=== PATIENT | female | born 1945 | race Caucasian/White ===

== ENCOUNTER 2021-03-26 22:21 | Inpatient (IN) ==
--- NOTE | 2021-03-26 23:30 | Emergency Department Note ---
History of Present Illness General Chief complaint: Back Injury/Pain Stated complaint: BACK PAIN, SORES ON BACK Time Seen by Provider: 03/26/21 22:54 Source: family Mode of arrival: EMS Limitations: altered mental status History of Present Illness Provider complaint: lesions to back/buttock Onset (ago): day(s) 6 Location: back Maximum Pain Intensity: 6 Treatments prior to arrival: other This is a 76-year-old female presents emergency department with daughter at bedside due to concern for worsening lesions to her back and buttocks as well as recent fever and increased confusion. Daughter states she seemed more confused and lethargic on Sunday compared to normal and developed a fever. She states she was started on Bactrim for a UTI by staff at the facility where she lives. She states the following day she was still unwell, with decreased oral intake. Yesterday family went to visit her and noticed lesions to her back. Daughter at bedside called today and went and picked her mother up to take her to [facility] for additional blood work and testing. Daughter states she is still taking Bactrim however they also noticed worsening lesions to her back and buttocks. He states it did not appear consistent with prior pressure ulcers. She states her mother gets dialysis Sunday through Sunday a shortened course each day, and then has Sunday and Sunday off. She states she does still have fevers yesterday evening, none noted today. Mother her mother has still had decreased oral intake. Pt seen during a time of high acuity and national emergency pandemic while wearing PPE. Home Medications Medication Instructions Recorded Confirmed Type acetaminophen 325 mg tablet 650 mg PO DAILY 03/26/21 03/26/21 History (Tylenol) acetaminophen 325 mg tablet 650 mg PO Q6H PRN MDD 3 GRAMS/24 03/26/21 03/26/21 History (Tylenol) HOURS. acetazolamide 250 mg tablet 250 mg PO QID 03/26/21 03/26/21 History albuterol sulfate 90 mcg/actuation 2 puff INHALATION Q4H PRN 03/26/21 03/26/21 History aerosol inhaler (ProAir HFA) amlodipine 5 mg tablet 5 mg PO DAILY 03/26/21 03/26/21 History betamethasone dipropionate 0.05 % 1 applic TOPICAL BID 03/26/21 03/26/21 History topical cream brimonidine 0.2 %-timolol 0.5 % 1 drp OPL TIDM 03/26/21 03/26/21 History eye drops (Combigan) carboxymethylcellulose sodium 0.5 1 drp OPR QID 03/26/21 03/26/21 History % eye drops (Refresh Tears) chlorhexidine gluconate 4 % 1 ea TOPICAL BID 03/26/21 03/26/21 History topical liquid (Hibiclens) cholecalciferol (vitamin D3) 125 125 mcg PO DAILY 03/26/21 03/26/21 History mcg (5,000 unit) tablet (Vitamin D3) diphenhydramine-zinc acetate 2 1 applic TOPICAL BID PRN 03/26/21 03/26/21 History %-0.1 % topical cream (Benadryl Extra Strength) dorzolamide 2 % eye drops 1 drp OPL Q8H 03/26/21 03/26/21 History fluticasone furoate 100 1 inh INHALATION DAILY 03/26/21 03/26/21 History mcg-vilanterol 25 mcg/dose inhalation powder (Breo Ellipta) hydrogen peroxide 3 % solution 1 applic TOPICAL DIRECTED 03/26/21 03/26/21 History insulin glargine 100 unit/mL (3 22 unit SUBCUT DAILY 03/26/21 03/26/21 History mL) subcutaneous pen (Basaglar KwikPen U-100 Insulin) insulin lispro 100 unit/mL 4 unit SUBCUT DAILY 03/26/21 03/26/21 History subcutaneous solution (Humalog U-100 Insulin) ipratropium 0.5 mg-albuterol 3 mg 3 ml INHALATION Q6H PRN 03/26/21 03/26/21 History (2.5 mg base)/3 mL nebulization soln labetalol 100 mg tablet 100 mg PO BID 03/26/21 03/26/21 History levothyroxine 125 mcg tablet 125 mcg PO DAILY 03/26/21 03/26/21 History loratadine 10 mg tablet (Claritin) 10 mg PO DAILY 03/26/21 03/26/21 History midodrine 5 mg tablet 5 mg PO BID 03/26/21 03/26/21 History miscellaneous medical supply 03/26/21 03/26/21 History (Ocusoft Eyelid Cleansing Pads) ondansetron HCl 4 mg tablet 4 mg PO Q8H PRN 03/26/21 03/26/21 History pilocarpine HCl 2 % eye drops 1 drp OPL TID 03/26/21 03/26/21 History sertraline 50 mg tablet (Zoloft) 50 mg PO DAILY 03/26/21 03/26/21 History sevelamer carbonate 800 mg tablet 2,400 mg PO TID 03/26/21 03/26/21 History (Renvela) sodium bicarbonate 650 mg tablet 325 mg PO TID 03/26/21 03/26/21 History sulfamethoxazole 800 1 tab PO BID 03/26/21 03/26/21 History mg-trimethoprim 160 mg tablet (Bactrim DS) sumatriptan succinate 50 mg tablet 50 mg PO Q24H PRN 03/26/21 03/26/21 History (Imitrex) triamcinolone acetonide 55 mcg 2 spray INTRANASAL DAILY 03/26/21 03/26/21 History nasal spray aerosol (Nasacort Allergy) vitamin B complex and vitamin C 1 cap PO DAILY 03/26/21 03/26/21 History no.20-folic acid 1 mg capsule Allergies Allergy/AdvReac Type Severity Reaction Status Date / Time propoxyphene [From Darvon] Allergy Severe RESP Verified 03/26/21 23:15 DISTRESS shellfish derived Allergy Severe PER PT'S Verified 03/26/21 23:15 DAUGHTER "SEVERE REACTION LONG TIME AGO". latex Allergy Intermediate Rash Verified 03/26/21 23:15 Past Med/Surg History Medical History (Updated 03/27/21 @ 23:56 by Emili Myers DO) Allergic rhinitis Anxiety with depression CKD (chronic kidney disease) requiring chronic dialysis COPD (chronic obstructive pulmonary disease) Diabetes mellitus Glaucoma Hypertension Hypothyroidism (acquired) Migraine headache Urinary tract infection Social History Smoking Status: Never smoker Preferred Language: Pashto Feels Safe at Home: Yes Review of Systems A total of 10 systems reviewed and were otherwise negative All systems reviewed & are unremarkable except as noted in HPI & below Physical Exam Vital Signs Vital Signs - 24 hr 03/27/21 00:35 03/27/21 02:00 03/27/21 03:30 Pulse Rate [Left] 76 78 79 Respiratory Rate 18 16 16 Respiratory Effort / Characteristics Non-Labored Spontaneous Non-Labored Spontaneous Non-Labored Spontaneous Respiratory Depth Normal Normal Normal Blood Pressure [Right Arm] 163/66 H 153/63 H 172/78 H Blood Pressure Mean [Right Arm] 98 93 109 Pulse Oximetry 100 100 98 Oxygen Delivery Method Room Air Room Air Room Air 03/27/21 04:00 Pulse Rate [Left] 80 Respiratory Rate 16 Respiratory Effort / Characteristics Non-Labored Spontaneous Respiratory Depth Normal Blood Pressure [Right Arm] 146/62 H Blood Pressure Mean [Right Arm] 90 Pulse Oximetry 95 Oxygen Delivery Method Room Air GENERAL: alert, unwell appearing, well nourished, no distress, non-toxic EYE EXAM: normal conjunctiva, PERRL and EOM's grossly intact OROPHARYNX: no exudate, no erythema, lips, buccal mucosa, and tongue normal and mucous membranes are moist NECK: supple, no nuchal rigidity, no adenopathy, non-tender LUNGS: Clear to auscultation. Normal chest wall mechanics, no w/r/r HEART: no murmurs, S1 normal and S2 normal ABDOMEN: abdomen soft, non-tender, normo-active bowel sounds, no masses, no rebound or guarding. BACK: Back is symmetrical on inspection and there is no deformity, no midline tenderness, no CVA tenderness. SKIN: no bruising or petechiae, multiple lesions noted to the left low back into the left buttock that are erythematous at the base with an excoriated and ulcerative appearing lesion centrally, no vesicles, appearance not consistent with zoster, no drainage, increased erythema and induration left lateral lumbar region which appears to have started around one of the lesions, the appearance of lateralization does not suggest there consistent with a pressure ulcer, there is also some areas of excoriation down onto the left buttock medially UPPER EXTREMITIES: upper extremities are grossly normal. FROM, nml pulses b/l. Dialysis fistula noted in the left upper extremity. LOWER EXTREMITIES: No pitting edema. FROM, nml pulses b/l. NEURO EXAM: Normal sensorium, cranial nerves II-XII grossly intact, normal speech, no gross weakness of arms, no gross weakness of legs. Gross sensation intact. Course Administered Medications Acetaminophen (Acetaminophen 325 Mg Tab) 650 mg PO Q6H PRN PRN Reason: Pain or Fever Stop: 04/26/21 05:24 Last Admin: 03/27/21 22:40 Dose: 650 mg Documented by: [id number] Acetazolamide (Acetazolamide 250 Mg Tab) 250 mg PO QID JORGE A Stop: 04/26/21 08:59 Last Admin: 03/27/21 21:24 Dose: 250 mg Documented by: [id number] Admin: 03/27/21 16:00 Dose: 250 mg Documented by: [id number] Admin: 03/27/21 13:22 Dose: 250 mg Documented by: [id number] Admin: 03/27/21 10:27 Dose: Not Given Documented by: [id number] Amlodipine Besylate (Amlodipine Besylate 5 Mg Tab) 5 mg PO DAILY JORGE A Stop: 04/26/21 08:59 Last Admin: 03/27/21 07:46 Dose: 5 mg Documented by: [id number] Clotrimazole (Clotrimazole 10 Mg Harley) 10 mg BUCCAL [id number] JORGE A Stop: 04/06/21 06:59 Last Admin: 03/27/21 21:30 Dose: 10 mg Documented by: [id number] Admin: 03/27/21 17:40 Dose: 10 mg Documented by: [id number] Admin: 03/27/21 16:00 Dose: 10 mg Documented by: [id number] Admin: 03/27/21 12:23 Dose: 10 mg Documented by: [id number] Admin: 03/27/21 07:48 Dose: 10 mg Documented by: [id number] Dorzolamide HCl (Dorzolamide Hcl 2% Oph Soln 10 Ml Btl) 1 drops OPL Q8H JORGE A Stop: 04/26/21 05:59 Last Admin: 03/27/21 21:25 Dose: 1 drops Documented by: [id number] Admin: 03/27/21 13:22 Dose: 1 drops Documented by: [id number] Admin: 03/27/21 07:45 Dose: 1 drops Documented by: [id number] Fluticasone/Vilanterol (Fluticasone/Vilanterol 100/25mcg 14 Puffs/Inhaler) 1 p uffs INH DAILY JORGE A Stop: 04/26/21 08:59 Last Admin: 03/27/21 07:50 Dose: 1 puffs Documented by: [id number] Heparin Sodium (Porcine) (Heparin Sod 5,000 Unit/0.5 Ml Vial) 5,000 units SQ Q12 JORGE A Stop: 04/26/21 08:59 Last Admin: 03/27/21 21:26 Dose: 5,000 units Documented by: [id number] Admin: 03/27/21 07:49 Dose: 5,000 units Documented by: [id number] Acyclovir Sodium 250 mg/ (Dextrose) 105 mls @ 100 mls/hr IV Q24H JORGE A; Protocol Stop: 04/03/21 05:59 Last Infusion: 03/27/21 21:54 Dose: 0 mls/hr Documented by: [id number] Admin: 03/27/21 21:28 Dose: 250 mls/hr Documented by: [id number] Infusion: 03/27/21 08:02 Dose: 0 mls/hr Documented by: [id number] Admin: 03/27/21 06:22 Dose: 100 mls/hr Documented by: [id number] Cefazolin Sodium (Ancef 1000mg) 1,000 mg in 7.5 mls @ 2.5 mls/min IV Q24H JORGE A; Protocol Stop: 04/03/21 16:59 Last Admin: 03/27/21 16:06 Dose: 2.5 mls/min Documented by: [id number] Insulin Aspart (Insulin Aspart Per Unit) 0 units SC ACHS JORGE A Stop: 04/26/21 07:29 Last Admin: 03/27/21 22:07 Dose: Not Given Documented by: [id number] Cosigned by: [id number] Admin: 03/27/21 17:29 Dose: Not Given Documented by: [id number] Admin: 03/27/21 13:33 Dose: 5 units Documented by: [id number] Cosigned by: [id number] Admin: 03/27/21 09:09 Dose: 8 units Documented by: [id number] Cosigned by: [id number] Insulin Glargine (Insulin Glargine Solostar 100 Units/Ml 3 Ml Pen) 22 units SQ DAILY JORGE A Stop: 04/26/21 08:59 Last Admin: 03/27/21 09:10 Dose: 22 units Documented by: [id number] Cosigned by: [id number] Labetalol HCl (Labetalol Hcl 100 Mg Tab) 100 mg PO BID JORGE A Stop: 04/26/21 08:59 Last Admin: 03/27/21 21:26 Dose: 100 mg Documented by: [id number] Admin: 03/27/21 07:46 Dose: 100 mg Documented by: [id number] Levothyroxine Sodium (Levothyroxine Sodium 125 Mcg Tablet) 125 mcg PO DAILYBB JORGE A Stop: 04/26/21 06:29 Last Admin: 03/27/21 07:46 Dose: 125 mcg Documented by: [id number] Loratadine (Loratadine 10 Mg Tab) 10 mg PO DAILY [facility] Stop: 04/26/21 08:59 Last Admin: 03/27/21 07:47 Dose: 10 mg Documented by: [id number] Midodrine (Midodrine Hcl 2.5 Mg Tab) 5 mg PO BID@0800,1200 JORGE A Stop: 04/26/21 07:59 Last Admin: 03/27/21 12:24 Dose: 5 mg Documented by: [id number] Admin: 03/27/21 07:46 Dose: 5 mg Documented by: [id number] Miscellaneous (Brimonidine-Timolol [Combigan]: Order Awaiting Action) 1 ea N/A QS [facility] Stop: 04/26/21 07:59 Last Admin: 03/27/21 14:09 Dose: Not Given Documented by: [id number] Admin: 03/27/21 07:54 Dose: Not Given Documented by: [id number] Miscellaneous (Carbohydrates For Hypoglycemia ) 15 - 30 gm PO UD PRN PRN Reason: Hypoglycemia Protocol Stop: 04/26/21 05:24 Last Admin: 03/27/21 21:11 Dose: 30 gm Documented by: [id number] Pilocarpine HCl (Pilocarpine Hcl 2% Op Soln 15 Ml Btl) 1 drops OPL Q8H JORGE A Stop: 04/26/21 05:59 Last Admin: 03/27/21 21:25 Dose: 1 drops Documented by: [id number] Admin: 03/27/21 13:22 Dose: 1 drops Documented by: [id number] Admin: 03/27/21 07:45 Dose: 1 drops Documented by: [id number] Sertraline HCl (Sertraline Hcl 50 Mg Tablet) 50 mg PO DAILY JORGE A Stop: 04/26/21 08:59 Last Admin: 03/27/21 07:48 Dose: 50 mg Documented by: [id number] Sevelamer HCl (Sevelamer Hcl 800 Mg Tablet) 2,400 mg PO TIDM JORGE A Stop: 04/26/21 07:59 Last Admin: 03/27/21 16:01 Dose: 2,400 mg Documented by: [id number] Admin: 03/27/21 12:23 Dose: 2,400 mg Documented by: [id number] Admin: 03/27/21 07:48 Dose: 2,400 mg Documented by: [id number] Sodium Bicarbonate (Sodium Bicarbonate 650 Mg Tab) 325 mg PO TID JORGE A Stop: 04/26/21 08:59 Last Admin: 03/27/21 21:24 Dose: 325 mg Documented by: [id number] Admin: 03/27/21 13:23 Dose: 325 mg Documented by: [id number] Admin: 03/27/21 07:47 Dose: 325 mg Documented by: [id number] Vitamin B Complex/Folic Acid (Nephrocaps) 1 cap PO DAILY JORGE A Stop: 04/26/21 08:59 Last Admin: 03/27/21 07:46 Dose: 1 cap Documented by: [id number] Vitamin D (Cholecalciferol 5,000 Units 125 Mcg Tab) 5,000 units PO DAILY JORGE A Stop: 04/26/21 08:59 Last Admin: 03/27/21 07:48 Dose: 5,000 units Documented by: [id number] Discontinued Medications Sodium Chloride (Nss) 250 mls @ 999 mls/hr IV .Q16M ONE Stop: 03/27/21 00:55 Last Infusion: 03/27/21 01:02 Dose: 0 mls/hr Documented by: [id number] Admin: 03/27/21 00:45 Dose: 999 mls/hr Documented by: [id number] Cefepime HCl (Maxipime) 2,000 mg in 20 mls @ 5 mls/min IV NOW STA; Protocol Stop: 03/27/21 01:16 Last Admin: 03/27/21 01:46 Dose: 5 mls/min Documented by: [id number] Vancomycin HCl 1,250 mg/ (Sodium Chloride) 525 mls @ 200 mls/hr IV NOW ONE Stop: 03/27/21 05:28 Last Infusion: 03/27/21 03:35 Dose: 0 mls/hr Documented by: [id number] Admin: 03/27/21 03:20 Dose: 200 mls/hr Documented by: [id number] Daptomycin 200 mg/ Syringe 4 mls @ 2 mls/min IV NOW ONE; Protocol Stop: 03/27/21 03:35 Last Admin: 03/27/21 04:08 Dose: 2 mls/min Documented by: [id number] Medical Decision Making Differential Diagnosis Differential Diagnosis includes but is not limited to dehydration, stroke, anemia, hypoglycemia, hyponatremia, hypernatremia, urinary tract infection, pneumonia, bronchitis, sepsis, gastroenteritis, additional abdominal pathology, metabolic abnormalities and infections. Medical Records Attestation: I reviewed the patient's medical records. Home Medications Current Medication List: was personally reviewed by me Laboratory Data Attestation: I reviewed the patient's lab results. Result diagrams: 03/26/21 23:45 03/26/21 23:45 Lab Results 03/26/21 03/26/21 03/26/21 Range/Units 23:45 23:45 23:45 WBC 13.60 H (4.8-10.8) K/uL RBC 2.66 L (4.2-5.4) M/uL Hgb 9.0 L (12.0-16.0) g/dL Hct 28.7 L (37-47) % MCV 107.9 H (80-100) fL MCH 33.8 (25-34) pg MCHC 31.4 L (32-36) g/dL RDW Std Deviation 60.5 H (36.4-46.3) fL RDW Coeff of Maggie 15.4 H (11.5-14.5) % Plt Count 237 (130-400) K/uL MPV 10.2 (7.4-10.4) fL Immature Gran % (Auto) 0.7 % Neut % (Auto) 85.5 % Lymph % (Auto) 10.9 % [place] % (Auto) 1.9 % Eos % (Auto) 0.9 % Baso % (Auto) 0.1 % Neut # (Auto) 11.63 H (1.4-6.5) K/uL Lymph # (Auto) 1.48 (1.2-3.4) K/uL [place] # (Auto) 0.26 (0.11-0.59) K/uL Eos # (Auto) 0.12 (0-0.5) K/uL Baso # (Auto) 0.01 (0-0.2) K/uL Immature Gran # (Auto) 0.10 H (0.00-0.02) K/uL Sodium 134 L (136-145) mmol/L Potassium 3.7 (3.5-5.1) mmol/L Chloride 91 L (98-107) mmol/L Carbon Dioxide 31 (21-32) mmol/L Anion Gap 12 H (3-11) BUN 46 H (6-23) mg/dl Creatinine 3.65 H (0.6-1.2) mg/dl Est Cr Clr Drug Dosing Not Reportable Est GFR ( Amer) 13.2 ml/min Est GFR (Non-Af Amer) 11.4 ml/min BUN/Creatinine Ratio 12.6 (10-20) Glucose 294 H (70-99(Fasting)) mg/dl Calcium 8.3 L (8.5-10.1) mg/dl Phosphorus 2.1 L (2.5-4.9) mg/dl Magnesium 2.5 H (1.7-2.4) mg/dl Total Bilirubin 0.4 (0.2-1.0) mg/dl AST 7 L (13-39) U/L ALT < 3 L (7-52) U/L Alkaline Phosphatase 134 H (34-104) U/L Total Protein 6.4 (6.0-8.3) gm/dl Albumin 3.6 (3.4-5.0) gm/dl Globulin 2.8 (2.5-4.0) gm/dl Albumin/Globulin Ratio 1.3 (0.9-2) Procalcitonin 4.42 H (0-0.5) ng/ml Nasal Screen MRSA (PCR) (Negative) SARS-CoV-2, RNA, NAAT (NEGATIVE) 03/27/21 03/27/21 Range/Units 01:00 01:00 WBC (4.8-10.8) K/uL RBC (4.2-5.4) M/uL Hgb (12.0-16.0) g/dL Hct (37-47) % MCV (80-100) fL MCH (25-34) pg MCHC (32-36) g/dL RDW Std Deviation (36.4-46.3) fL RDW Coeff of Maggie (11.5-14.5) % Plt Count (130-400) K/uL MPV (7.4-10.4) fL Immature Gran % (Auto) % Neut % (Auto) % Lymph % (Auto) % [place] % (Auto) % Eos % (Auto) % Baso % (Auto) % Neut # (Auto) (1.4-6.5) K/uL Lymph # (Auto) (1.2-3.4) K/uL [place] # (Auto) (0.11-0.59) K/uL Eos # (Auto) (0-0.5) K/uL Baso # (Auto) (0-0.2) K/uL Immature Gran # (Auto) (0.00-0.02) K/uL Sodium (136-145) mmol/L Potassium (3.5-5.1) mmol/L Chloride (98-107) mmol/L Carbon Dioxide (21-32) mmol/L Anion Gap (3-11) BUN (6-23) mg/dl Creatinine (0.6-1.2) mg/dl Est Cr Clr Drug Dosing Est GFR ( Amer) ml/min Est GFR (Non-Af Amer) ml/min BUN/Creatinine Ratio (10-20) Glucose (70-99(Fasting)) mg/dl Calcium (8.5-10.1) mg/dl Phosphorus (2.5-4.9) mg/dl Magnesium (1.7-2.4) mg/dl Total Bilirubin (0.2-1.0) mg/dl AST (13-39) U/L ALT (7-52) U/L Alkaline Phosphatase (34-104) U/L Total Protein (6.0-8.3) gm/dl Albumin (3.4-5.0) gm/dl Globulin (2.5-4.0) gm/dl Albumin/Globulin Ratio (0.9-2) Procalcitonin (0-0.5) ng/ml Nasal Screen MRSA (PCR) Positive A (Negative) SARS-CoV-2, RNA, NAAT NEGATIVE (NEGATIVE) Imaging Data Radiologist's Impression: CT head: Motion artifact limits evaluation. High attenuation material within the left basal ganglia which is favored to represent calcification as there is an adjacent chronic infarct and there is a lack of surrounding edema. Blood products difficult to exclude especially given the motion artifact. Recommend correlation with any comparisons available. Alternatively consider follow-up CT in a few hours or MRI for definitive characterization. Additional calcifications within the cerebellum. CT abdomen and pelvis without contrast: Mild mucosal thickening in the bladder. Correlate with UA for cystitis. Moderate stool within the rectum. Correlate for constipation. No obstruction or abscess. Atrophic kidneys. Cholelithiasis. Gallbladder is distended. Radiologist: Leonardo Santiago MD CT head: Unchanged appearance of the high attenuation focus in the left basal ganglia. Again favored to be calcium. Blood products considered less likely but not excluded. No surrounding edema. If there are focal lateralizing symptoms and clinical exam consistent with this distribution consider MRI for further characterization. Radiologist: Leonardo Santiago MD MDM Narrative This is a 76-year-old female presents emergency department with daughter due to concern for evolving back pain with accompanying rash and recent diagnosis of UTI. Patient with a complicated past medical history including chronic kidney disease on dialysis, patient does currently reside at an assisted living facility. Patient was diagnosed with a UTI earlier this week and started on Bactrim twice daily. Family noticed an evolving rash to her left low back and buttock area that seemed dissimilar in appearance with prior pressure sores. Patient was noticed to have decreased oral intake, increased fatigue and lethargy, and intermittent fevers. Patient with atypical appearing rash on exam. Not consistent with pressure ulcers or zoster although involved areas are unilateral. There does appear to be evolving cellulitis around one of the lesions in addition. MRSA swab added given patient's diabetic status although daughter denies history of MRSA. This was positive, and after discussion with the hospitalist vancomycin was changed to daptomycin. We were eventually able to obtain a copy of the UA from the facility, no culture was available. Outpatient labs ordered through [facility] were also obtained through medical records from [facility]. In comparison of labs from [facility] which were just taken earlier prior to arrival and the labs obtained upon arrival here, patient's white blood cell count was already more elevated. Patient also found to have an elevated procalcitonin. Due to comorbidities and evolving labs, I am concerned for possible evolving sepsis. Patient started on IV antibiotics in addition. Patient was hemodynamically stable throughout. Patient and daughter kept up-to-date on results and plan, verbalized understanding and were in agreement. An order was placed for continuous cardiac monitoring. The monitor shows a rate of _88__ with _normal sinus_ rhythm. Impression & Plan Back pain, CKD (chronic kidney disease) requiring chronic dialysis, Urinary tract infection, Elevated procalcitonin, Rash Discharge Plan Visit Data Chief Complaint: Back Injury/Pain Stated Complaint: BACK PAIN, SORES ON BACK ED Provider: Emili Myers Discharge Problem: Back pain, CKD (chronic kidney disease) requiring chronic dialysis, Urinary tract infection, Elevated procalcitonin, Rash Patient Disposition: Admitted As Inpatient Discharge Instructions Interventions: ED Discharge Assessment Last Done: 03/27/21 05:15 Discharge Problem: Back pain Qualifiers: Back pain location: low back pain Chronicity: acute Back pain laterality: left Sciatica presence: without sciatica Qualified Code(s): M54.50 - Low back pain, unspecified Urinary tract infection Qualifiers: Urinary tract infection type: acute cystitis Hematuria presence: without hematuria Qualified Code(s): N30.00 - Acute cystitis without hematuria
[2021-03-26 23:59] LABS: Basophils # (auto) 0.01 K/uL (0-0.2); Basophils % (auto) 0.1 %; Eosinophils # (auto) 0.12 K/uL (0-0.5); Eosinophils % (auto) 0.9 %; Hematocrit (blood only) 28.7 % (37-47); Immature Granulocytes % (auto) 0.7 %; Lymphocytes # (auto) 1.48 K/uL (1.2-3.4); Lymphocytes % (auto) 10.9 %; Mean Corpuscular Hemoglobin 33.8 pg (25-34); Mean Corpuscular Hgb Conc 31.4 g/dL (32-36); Mean Corpuscular Volume 107.9 fL (80-100); Mean Platelet Volume 10.2 fL (7.4-10.4); Monocytes # (auto) 0.26 K/uL (0.11-0.59); Monocytes % (auto) 1.9 %; Neutrophils # (auto) 11.63 K/uL (1.4-6.5); Neutrophils % (auto) 85.5 %; Platelet Count 237 K/uL (130-400); RDW Coefficient of Variation 15.4 % (11.5-14.5); RDW Standard Deviation 60.5 fL (36.4-46.3); Red Blood Count 2.66 M/uL (4.2-5.4)
[2021-03-27 00:19] LABS: Anion Gap 12 (3-11); BUN Creatinine Ratio 12.6 (10-20); Blood Urea Nitrogen 46 mg/dl (6-23); Calcium 8.3 mg/dl (8.5-10.1); Carbon Dioxide 31 mmol/L (21-32); Chloride 91 mmol/L (98-107); Est GFR (African American) 13.2 ml/min; Est GFR (Non-African American) 11.4 ml/min; Glucose 294 mg/dl (70-99(Fasting)); Potassium 3.7 mmol/L (3.5-5.1); Sodium 134 mmol/L (136-145)
[2021-03-27 00:20] LABS: Alanine Aminotransferase < 3 U/L (7-52); Albumin Globulin Ratio 1.3 (0.9-2); Albumin Level 3.6 gm/dl (3.4-5.0); Alkaline Phosphatase 134 U/L (34-104); Aspartate Aminotransferase 7 U/L (13-39); Bilirubin,Total 0.4 mg/dl (0.2-1.0); Globulin 2.8 gm/dl (2.5-4.0); Magnesium 2.5 mg/dl (1.7-2.4); Phosphorus 2.1 mg/dl (2.5-4.9); Total Protein 6.4 gm/dl (6.0-8.3)
[2021-03-27] MEDS ORDERED: SODIUM CHLORIDE 0.9% 250 ML IV ONE (00:40)
[2021-03-27] MEDS ORDERED: CEFEPIME 2,000 MG/20 ML VIAL IV STA (01:13)
[2021-03-27] MEDS ORDERED: VANCOMYCIN CONSULT ACTIVE PRN (02:51)
[2021-03-27] MEDS ORDERED: VANCOMYCIN HCL 1,250 MG in SODIUM CHLORIDE 0.9% 500 ML IV ONE (02:51)
[2021-03-27] MEDS ORDERED: DAPTOmycin 200 MG in SYRINGE 0 ML IV ONE (03:34)
--- NOTE | 2021-03-27 04:17 | History & Physical Report ---
Date of Service March 27, 2021 Assessment & Plan (1) Shingles: Plan: Shingles, indermatomal rash form, with no vesicles yet Start acyclovir 500 mg IV every 8 hours (2) Abscess or cellulitis of back: Plan: Secondary infection on top of baseline shingles, and in intergluteal area with decubitus Placed on daptomycin IV and cefepime IV (3) CKD (chronic kidney disease) requiring chronic dialysis: Plan: CKD requiring chronic dialysis/hypertension-continue Acetazolamide, amlodipine, labetalol, midodrine, sevelamer carbonate, sodium bicarbonate Creatinine 3.65 upon admission, a BUN 46. Patient reportedly receives small treatments of dialysis Sunday through Sunday, and then is given off Sunday and Sunday. Does not need urgent dialysis, appears to be able to be on her usual schedule starting Sunday Consult nephrology (4) Hypertension: Plan: See above (5) Thrush, oral: Plan: Place on Mycelex troches, dissolve in mouth 5 times per day x5 days (6) Urinary tract infection: Plan: To be covered with antibiotics included for skin infection: Daptomycin and cefepime Follow urine culture sensitivity drawn here, as only urinalysis was drawn at the referring institution (7) Diabetes mellitus: Plan: Glucose 294 upon admission Check hemoglobin A1c Continue insulin glargine 22 units subcu daily Hold standing order for Humalog Place on Accu-Cheks before meals and at bedtime with NovoLog coverage per scale (8) COPD (chronic obstructive pulmonary disease): Plan: Continue usual inhalers (9) Migraine headache: Plan: Continue sumatriptan (10) Hypothyroidism (acquired): Plan: Continue levothyroxine 125 mcg daily (11) Anxiety with depression: Plan: Continue sertraline (12) Allergic rhinitis: Plan: Continue loratadine (13) Glaucoma: Plan: Continue outpatient regimen: Acetazolamide, Combigan, dorzolamide, and pilocarpine History of Present Illness Chief Complaint: The patient presents to the emergency department with her daughter, due to worsening skin lesions on her back and buttocks and intergluteal areas, along with fever and worsening confusion. Primary Care Provider: Gilbert Madrid DO The patient is a 76-year-old female with a past medical history including ESRD on HD, hypertension, glaucoma, vitamin D deficiency, glaucoma, migraine headache, orthostatic hypotension, allergic rhinitis, hypothyroidism, and diabetes mellitus who presents to the emergency department as noted above. She has had decreased oral intake over the past several days. She was started on Bactrim for urinary tract infection at [facility] in [place] where she lives. Yesterday, the family noted skin lesions on her back, that the daughter reports are worsening today. She initially picked up her mother and took her to [facility] for additional blood work and testing, and now presents to [facility] for further evaluation and treatment Allergies Allergy/AdvReac Type Severity Reaction Status Date / Time propoxyphene [From Darvon] Allergy Severe RESP Verified 03/26/21 23:15 DISTRESS shellfish derived Allergy Severe PER PT'S Verified 03/26/21 23:15 DAUGHTER "SEVERE REACTION LONG TIME AGO". latex Allergy Intermediate Rash Verified 03/26/21 23:15 Home Medications Medication Instructions Recorded Confirmed Type acetaminophen 325 mg tablet 650 mg PO DAILY 03/26/21 03/26/21 History (Tylenol) acetaminophen 325 mg tablet 650 mg PO Q6H PRN MDD 3 /03/26/21 03/26/21 History (Tylenol) HOURS. acetazolamide 250 mg tablet 250 mg PO QID 03/26/21 03/26/21 History albuterol sulfate 90 mcg/actuation 2 puff INHALATION Q4H PRN 03/26/21 03/26/21 History aerosol inhaler (ProAir HFA) amlodipine 5 mg tablet 5 mg PO DAILY 03/26/21 03/26/21 History betamethasone dipropionate 0.05 % 1 applic TOPICAL BID 03/26/21 03/26/21 History topical cream brimonidine 0.2 %-timolol 0.5 % 1 drp OPL TIDM 03/26/21 03/26/21 History eye drops (Combigan) carboxymethylcellulose sodium 0.5 1 drp OPR QID 03/26/21 03/26/21 History % eye drops (Refresh Tears) chlorhexidine gluconate 4 % 1 ea TOPICAL BID 03/26/21 03/26/21 History topical liquid (Hibiclens) cholecalciferol (vitamin D3) 125 125 mcg PO DAILY 03/26/21 03/26/21 History mcg (5,000 unit) tablet (Vitamin D3) diphenhydramine-zinc acetate 2 1 applic TOPICAL BID PRN 03/26/21 03/26/21 History %-0.1 % topical cream (Benadryl Extra Strength) dorzolamide 2 % eye drops 1 drp OPL Q8H 03/26/21 03/26/21 History fluticasone furoate 100 1 inh INHALATION DAILY 03/26/21 03/26/21 History mcg-vilanterol 25 mcg/dose inhalation powder (Breo Ellipta) hydrogen peroxide 3 % solution 1 applic TOPICAL DIRECTED 03/26/21 03/26/21 History insulin glargine 100 unit/mL (3 22 unit SUBCUT DAILY 03/26/21 03/26/21 History mL) subcutaneous pen (Basaglar KwikPen U-100 Insulin) insulin lispro 100 unit/mL 4 unit SUBCUT DAILY 03/26/21 03/26/21 History subcutaneous solution (Humalog U-100 Insulin) ipratropium 0.5 mg-albuterol 3 mg 3 ml INHALATION Q6H PRN 03/26/21 03/26/21 History (2.5 mg base)/3 mL nebulization soln labetalol 100 mg tablet 100 mg PO BID 03/26/21 03/26/21 History levothyroxine 125 mcg tablet 125 mcg PO DAILY 03/26/21 03/26/21 History loratadine 10 mg tablet (Claritin) 10 mg PO DAILY 03/26/21 03/26/21 History midodrine 5 mg tablet 5 mg PO BID 03/26/21 03/26/21 History miscellaneous medical supply 03/26/21 03/26/21 History (Ocusoft Eyelid Cleansing Pads) ondansetron HCl 4 mg tablet 4 mg PO Q8H PRN 03/26/21 03/26/21 History pilocarpine HCl 2 % eye drops 1 drp OPL TID 03/26/21 03/26/21 History sertraline 50 mg tablet (Zoloft) 50 mg PO DAILY 03/26/21 03/26/21 History sevelamer carbonate 800 mg tablet 2,400 mg PO TID 03/26/21 03/26/21 History (Renvela) sodium bicarbonate 650 mg tablet 325 mg PO TID 03/26/21 03/26/21 History sulfamethoxazole 800 1 tab PO BID 03/26/21 03/26/21 History mg-trimethoprim 160 mg tablet (Bactrim DS) sumatriptan succinate 50 mg tablet 50 mg PO Q24H PRN 03/26/21 03/26/21 History (Imitrex) triamcinolone acetonide 55 mcg 2 spray INTRANASAL DAILY 03/26/21 03/26/21 History nasal spray aerosol (Nasacort Allergy) vitamin B complex and vitamin C 1 cap PO DAILY 03/26/21 03/26/21 History no.20-folic acid 1 mg capsule Past Med/Surg History Medical History (Updated 03/27/21 @ 05:02 by Patricio Guo MD) Allergic rhinitis Anxiety with depression CKD (chronic kidney disease) requiring chronic dialysis COPD (chronic obstructive pulmonary disease) Diabetes mellitus Glaucoma Hypertension Hypothyroidism (acquired) Migraine headache Urinary tract infection Social History Smoking Status: Never smoker Preferred Language: Barbadian Feels Safe at Home: Yes Review of Systems Review of Systems: Patient is not able to contribute to her HPI or review of systems, and her daughter who is with her, provides the information. Physical Exam Physical Exam: The patient is awake, well developed and well nourished, normocephalic and atraumatic, lying in bed and in no acute distress. HEENT--PERRL, EOMI, mucous membranes and oropharynx with thrush on tongue and buccal mucosa Neck--supple. No JVD. No bruits. Thyroid normal, trachea midline, no adenopathy. Heart--normal S1 and S2. No murmurs, rubs or gallops. Lungs--clear bilaterally, no respiratory distress, no accessory muscle use. Abdomen--normal bowel sounds and soft. Nontender. Nondistended, no hernias or masses, no organomegaly. Extremities--no cyanosis or clubbing. No edema. Dermatologic--right flank/upper buttock dermatomal rash, painful to touch, with overlying circular cellulitic areas with central granulation. Decubitus ulcer intergluteal stage II-III. Neurologic--cranial nerves II through XII grossly intact. Rheumatologic--limited exam Psychiatric--flat affect. Results & Data Results & Data ([facility]) Vital Signs (Past 12 Hours) Vital Signs Temp Pulse Pulse Resp BP BP Pulse Ox 03/27/21 04:00 80 16 146/62 H 95 03/27/21 03:30 79 16 172/78 H 98 03/27/21 02:00 78 16 153/63 H 100 03/27/21 00:35 76 18 163/66 H 100 03/26/21 22:42 76 18 137/68 100 03/26/21 22:31 36.9 C 82 16 128/66 100 Laboratory Results Laboratory Results WBC 13.60 K/uL (4.8-10.8) H 03/26/21 23:45 RBC 2.66 M/uL (4.2-5.4) L 03/26/21 23:45 Hgb 9.0 g/dL (12.0-16.0) L 03/26/21 23:45 Hct 28.7 % (37-47) L 03/26/21 23:45 MCV 107.9 fL (80-100) H 03/26/21 23:45 MCH 33.8 pg (25-34) 03/26/21 23:45 MCHC 31.4 g/dL (32-36) L 03/26/21 23:45 RDW Std Deviation 60.5 fL (36.4-46.3) H 03/26/21 23:45 RDW Coeff of Maggie 15.4 % (11.5-14.5) H 03/26/21 23:45 Plt Count 237 K/uL (130-400) 03/26/21 23:45 MPV 10.2 fL (7.4-10.4) 03/26/21 23:45 Immature Gran % (Auto) 0.7 % 03/26/21 23:45 Neut % (Auto) 85.5 % 03/26/21 23:45 Lymph % (Auto) 10.9 % 03/26/21 23:45 Emmons % (Auto) 1.9 % 03/26/21 23:45 Eos % (Auto) 0.9 % 03/26/21 23:45 Baso % (Auto) 0.1 % 03/26/21 23:45 Neut # (Auto) 11.63 K/uL (1.4-6.5) H 03/26/21 23:45 Lymph # (Auto) 1.48 K/uL (1.2-3.4) 03/26/21 23:45 Emmons # (Auto) 0.26 K/uL (0.11-0.59) 03/26/21 23:45 Eos # (Auto) 0.12 K/uL (0-0.5) 03/26/21 23:45 Baso # (Auto) 0.01 K/uL (0-0.2) 03/26/21 23:45 Immature Gran # (Auto) 0.10 K/uL (0.00-0.02) H 03/26/21 23:45 Sodium 134 mmol/L (136-145) L 03/26/21 23:45 Potassium 3.7 mmol/L (3.5-5.1) 03/26/21 23:45 Chloride 91 mmol/L (98-107) L 03/26/21 23:45 Carbon Dioxide 31 mmol/L (21-32) 03/26/21 23:45 Anion Gap 12 (3-11) H 03/26/21 23:45 BUN 46 mg/dl (6-23) H 03/26/21 23:45 Creatinine 3.65 mg/dl (0.6-1.2) H 03/26/21 23:45 Est Cr Clr Drug Dosing Not Reportable 03/26/21 23:45 Est GFR ( Amer) 13.2 ml/min 03/26/21 23:45 Est GFR (Non-Af Amer) 11.4 ml/min 03/26/21 23:45 BUN/Creatinine Ratio 12.6 (10-20) 03/26/21 23:45 Glucose 294 mg/dl (70-99(Fasting)) H 03/26/21 23:45 Calcium 8.3 mg/dl (8.5-10.1) L 03/26/21 23:45 Phosphorus 2.1 mg/dl (2.5-4.9) L 03/26/21 23:45 Magnesium 2.5 mg/dl (1.7-2.4) H 03/26/21 23:45 Total Bilirubin 0.4 mg/dl (0.2-1.0) 03/26/21 23:45 AST 7 U/L (13-39) L 03/26/21 23:45 ALT < 3 U/L (7-52) L 03/26/21 23:45 Alkaline Phosphatase 134 U/L (34-104) H 03/26/21 23:45 Total Protein 6.4 gm/dl (6.0-8.3) 03/26/21 23:45 Albumin 3.6 gm/dl (3.4-5.0) 03/26/21 23:45 Globulin 2.8 gm/dl (2.5-4.0) 03/26/21 23:45 Albumin/Globulin Ratio 1.3 (0.9-2) 03/26/21 23:45 Procalcitonin 4.42 ng/ml (0-0.5) H 03/26/21 23:45 Nasal Screen MRSA (PCR) Positive (Negative) A 03/27/21 01:00 SARS-CoV-2, RNA, NAAT NEGATIVE (NEGATIVE) 03/27/21 01:00 Code Status & VTE Plan Code Status DNR/DNI. Daughter reports that she does want IV antibiotics, IV fluids and pain medications as needed VTE Prophylaxis Plan VTE Prophylaxis will be ordered: Yes PG Care Time/CCT Total # of Minutes Spent Total Time Spent with Patient: Total time spent is greater than 50% in coordination of care (as documented) at patient's floor/unit and/or counseling patient: Coding Level of Care Code 86931 Initial Inpt Care Lvl 3 Diagnoses Glaucoma H40.9 Diabetes mellitus E11.9 Hypertension I10 Hypothyroidism (acquired) E03.9 COPD (chronic obstructive pulmonary disease) J44.9 Allergic rhinitis J30.9 Anxiety with depression F41.8 Urinary tract infection N39.0 Migraine headache G43.909 Shingles B02.9 Abscess or cellulitis of back Thrush, oral B37.0 CKD (chronic kidney disease) requiring chronic dialysis N18.6; Z99.2
[2021-03-27] MEDS ORDERED: ONDANSETRON INJ 2 MG/ML 2 ML VIAL IV PRN (05:25)
[2021-03-27] MEDS ORDERED: GLUCOSE 40% GEL 15 GM TUBE PO PRN (05:25)
[2021-03-27] MEDS ORDERED: GLUCOSE 10 TABS/TUBE PO PRN (05:25)
[2021-03-27] MEDS ORDERED: CARBOHYDRATES FOR HYPOGLYCEMIA PO PRN (05:25)
[2021-03-27] MEDS ORDERED: SUMAtriptan succinate 50 MG TAB PO PRN (05:25)
[2021-03-27] MEDS ORDERED: ACETAMINOPHEN 325 MG TAB PO PRN (05:25)
[2021-03-27] MEDS ORDERED: GLUCAGON FOR INJ 1 MG VIAL SQ PRN (05:25)
[2021-03-27] MEDS ORDERED: ONDANSETRON 4 MG OD TAB PO PRN (05:39)
[2021-03-27] MEDS ORDERED: ALBUTEROL HFA 8 GM INHALER INH PRN (05:41)
[2021-03-27] MEDS: DEXTROSE 5% IV SCH ×2 (06:22→21:28)
[2021-03-27] MEDS: ACYCLOVIR SOD IV SCH ×2 (06:22→21:28)
--- NOTE | 2021-03-27 07:00 | CT Scan Report ---
CT head/brain wo con CLINICAL HISTORY: 76 years-old Female with rad request. Follow-up study in a patient with acutely al tered mental status TECHNIQUE: Multiple axial CT images of the head were obtained without contrast. A dose lowering tech nique was utilized adhering to the principles of ALARA. CT DOSE: 614.27 mGy.cm COMPARISON: Head CT of same day at 1:31 AM FINDINGS: Age-related involutional changes. White matter hypodensities suggest chronic microvascular ischemic d isease. Parenchymal calcifications are noted within the cerebellum and medial periventricular tempora l lobes. 2.1 x 1.5 cm left periventricular cluster of calcifications redemonstrated on image 17 serie s 2. No definite intracranial hemorrhage. No midline shift, intracranial mass, hydrocephalus, territo rial ischemia or abnormal extra-axial collection. The calvarium is intact. Rightward bowing and spurring of the nasal septum. The paranasal sinuses, ma stoid air cells, and middle ear cavities are clear. IMPRESSION: 1. No definite intracranial hemorrhage or midline shift. 2. 2.1 x 1.5 cm left periventricular cluster of calcifications redemonstrated. Additional calcificati ons are noted within the cerebellum and temporal lobes. 3. Age-related involutional changes with chronic microvascular ischemic disease. ACT 112: Negative or not required by law. The above report was generated using voice recognition software. It may contain grammatical, syntax o r spelling errors. Electronically signed by: Heri Sullivan M.D. 03/27/2021 6:59 AM
--- NOTE | 2021-03-27 07:22 | CT Scan Report ---
CT head/brain wo con CLINICAL HISTORY: 76 years-old Female with ams. Acutely altered mental status TECHNIQUE: Multiple axial CT images of the head were obtained without contrast. A dose lowering tech nique was utilized adhering to the principles of ALARA. COMPARISON: Head CT of same day at 247 AM FINDINGS: Age-related involutional changes. White matter hypodensities suggest chronic microvascular ischemic d isease. Parenchymal calcifications are noted within the cerebellum and medial periventricular tempora l lobes. 2.1 x 1.5 cm left periventricular cluster of calcifications. No definite intracranial hemorr adriana. No midline shift, intracranial mass, hydrocephalus, territorial ischemia or abnormal extra-axia l collection. The calvarium is intact. Rightward bowing and spurring of the nasal septum. The paranasal sinuses, ma stoid air cells, and middle ear cavities are clear. IMPRESSION: 1. No definite intracranial hemorrhage or midline shift. 2. 2.1 x 1.5 cm left periventricular hyperdense focus is suggestive of a cluster of calcifications. A dditional calcifications are noted within the cerebellum and temporal lobes. 3. Age-related involutional changes with chronic microvascular ischemic disease. ACT 112: Negative or not required by law. The above report was generated using voice recognition software. It may contain grammatical, syntax o r spelling errors. Electronically signed by: Heri Sullivan M.D. 03/27/2021 7:21 AM
[2021-03-27] MEDS: DORZOLAMIDE HCL 2% OPH SOLN 10 ML BTL OPL SCH ×3 (07:45→21:25)
[2021-03-27] MEDS: PILOCARPINE HCL 2% OP SOLN 15 ML BTL OPL SCH ×3 (07:45→21:25)
[2021-03-27] MEDS: amLODIPine BESYLATE 5 MG TAB PO SCH (07:46)
[2021-03-27] MEDS: MIDODRINE HCL 2.5 MG TAB PO SCH ×2 (07:46→12:24)
[2021-03-27] MEDS: NEPHROCAPS PO SCH (07:46)
[2021-03-27] MEDS: LEVOTHYROXINE SODIUM 125 MCG TABLET PO SCH (07:46)
[2021-03-27] MEDS: LABETALOL HCL 100 MG TAB PO SCH ×2 (07:46→21:26)
[2021-03-27] MEDS: SODIUM BICARBONATE 650 MG TAB PO SCH ×3 (07:47→21:24)
[2021-03-27] MEDS: LORATADINE 10 MG TAB PO SCH (07:47)
[2021-03-27] MEDS: SERTRALINE HCL 50 MG TABLET PO SCH (07:48)
[2021-03-27] MEDS: SEVELAMER HCL 800 MG TABLET PO SCH ×3 (07:48→16:01)
[2021-03-27] MEDS: CLOTRIMAZOLE 10 MG TROCHE BUCCAL SCH ×5 (07:48→21:30)
[2021-03-27] MEDS: CHOLECALCIFEROL 5,000 UNITS 125 MCG TAB PO SCH (07:48)
[2021-03-27] MEDS: HEPARIN SOD 5,000 UNIT/0.5 ML VIAL SQ SCH ×2 (07:49→21:26)
[2021-03-27] MEDS: FLUTICASONE/VILANTEROL 100/25MCG 14 PUFFS/INHALER INH SCH (07:50)
--- NOTE | 2021-03-27 08:03 | CT Scan Report ---
ABDOMEN AND PELVIS CT WITHOUT CONTRAST CT DOSE: 949.86 mGy.cm HISTORY: Acute urinary tract infection with bilateral flank pain UTI, back pain TECHNIQUE: Multiaxial CT images of the abdomen and pelvis were performed without contrast. A dose lo wering technique was utilized adhering to the principles of ALARA. COMPARISON STUDY: None. FINDINGS: Cardiac megaly with coronary artery calcifications. Limited study secondary to upper extremity positi oning, between motion artifact and lack of IV contrast. Trace left pleural effusion. Mild left basila r atelectasis. No pneumatosis or pneumoperitoneum. Unremarkable spleen, pancreas and adrenal glands. Mildly distended gallbladder with cholelithiasis and equivocal gallbladder wall thickening. Unremarka ble liver. Mildly atrophic kidneys. Bilateral renal vascular calcifications are likely vascular in nature. No ur eteral calculi or hydronephrosis. Moderate urinary bladder wall thickening with partial distention. H ysterectomy. Atherosclerosis of the aorta without aneurysm. No adenopathy. Mild nonspecific distal esophageal wall thickening. Moderate rectal fecal retention with mild rectal wall thickening and trace perirectal stranding. Colonic diverticulosis. The visualized appendix appea rs noninflamed. Mild generalized body wall edema. Degenerative changes of the spine, pelvis and hips. There are 3 cannulated screws within the left femoral neck. No definite acute fracture identified. T here is suggestion of a AV fistula versus graft within the left upper extremity. IMPRESSION: 1. Gallbladder distention and cholelithiasis with equivocal gallbladder wall thickening. Correlation with right upper quadrant ultrasound recommended. 2. Moderate urinary bladder wall thickening with perivesicular edema is suggestive of cystitis. Corre late with urinalysis. 3. Moderate fecal retention. 4. Atrophic kidneys. No hydronephrosis 5. Additional findings as above. ACT 112: Negative or not required by law. The above report was generated using voice recognition software. It may contain grammatical, syntax o r spelling errors. Electronically signed by: Heri Sullivan M.D. 03/27/2021 8:02 AM
[2021-03-27] MEDS: INSULIN ASPART PER UNIT SC SCH ×4 (09:09→22:07)
[2021-03-27] MEDS: INSULIN GLARGINE SOLOSTAR 100 UNITS/ML 3 ML PEN SQ SCH (09:10)
[2021-03-27] MEDS: acetaZOLAMIDE 250 MG TAB PO SCH ×4 (10:27→21:24)
--- NOTE | 2021-03-27 10:31 | Hospitalist Progress Note ---
Date of Service March 27, 2021 Assessment & Plan (1) Abscess or cellulitis of back: Plan: 1) Shingles: -Unable to visualize on exam today though reportedly non-classic vesicular rash with mildly erythematous base noted crossing multiple dermatomes across T7-S1 -Possible mildly disseminated shingles rash -Continue acyclovir 500 mg IV q8h -Trend BMP 2) Abscess or cellulitis of back: -Admission exam suggestive of cellulitis with decubitus ulcer stage II in R int ergluteal area, MRSA nasal swab positive -S/p daptomycin, cefepime -Degree of infection not severe and given hemodynamic stability, largely superficial rash in area of low-risk for vascular compromise, will likely not require MRSA and pseudomonal coverage, to narrow abx to MSSA treatment -Discontinued daptomycin/cefepime, started cefazolin 1g q24h with doses to be delivered after HD per pharmacy recommendation -Plan to discharge home on Keflex if improvement noted on cefazolin -Trend CBC, BMP 3) CKD (chronic kidney disease) requiring chronic dialysis: -CKD requiring chronic dialysis/hypertension-continue acetazolamide, amlodipine, labetalol, midodrine, sevelamer carbonate, sodium bicarbonate -Creatinine 3.65 upon admission, BUN 46. Unknown what her baseline is -Patient reportedly receives small treatments of dialysis Sunday through Sunday, andthen is given off Sunday and Sunday. -Does not need urgent dialysis, appears to be able to be on her usual schedule starting Sunday 4) Oral candidiasis -Continue Mycelex troches 5x daily x5 days 5) DM2 -Glucose 294 upon admission -Continue insulin glargine 22 units daily -Place on Accu-Cheks before meals and at bedtime with NovoLog coverage per scale 6) Glaucoma -Continue outpatient regimen: Acetazolamide, Combigan, dorzolamide, and pilocarpine (2) Shingles: (3) Migraine headache: (4) Urinary tract infection: (5) Anxiety with depression: (6) Allergic rhinitis: (7) COPD (chronic obstructive pulmonary disease): (8) Hypothyroidism (acquired): (9) Hypertension: (10) Diabetes mellitus: (11) Glaucoma: (12) CKD (chronic kidney disease) requiring chronic dialysis: Admission and Anticipated Discharge Date Admission Date: March 27, 2021 Supervising Physician Co-Signing Physician Notes I personally examined the patient and verified all johnson points of history and exam, discussed case, and agree with decision making with Dr Welsh no meaningful HPI or ROS. R1 and nursing both noted unable to visualize rash due to positioning and lack of cooperation - when RN and i enter she is cooperative and allows us to roll her vitals noted heent nc at mmm skin diffuse but overall fairly mild appearance of scattered ulcerations - do appear that they could be consistent with vesicles that have since ruptured - but scattered from just distal to scapula down to buttock. all do appear L sided. does have a dense, warm area of erythema in a rectangular strip dermatomally distributed ~T10 area, not all that tender although hard to guage veracity of that with AMS. probable shingles w possible superimposed cellulitis -dermatomal strip most c/w shingles. remainder of scattered ulcerations - follow. ?mildly disseminated vs other process. given that she is not severe sepsis, etc --> continue acyclovir for this, and change abx to cefazolin (outcomes studies supporting largely treating infections based on severity of illness - and while she does have risks for this being a MRSA infection, she certainly is not severe sepsis, etc -- hasn't even truly met SIRS criteria which is a high-sensitive//low specific, "low bar" - so does not fit criteria for needing broad/deep abx coverage or ID consult for shingles unless situation were to worsen) AMS - ?baseline. strongly suspect acute delirium from above. ?calcifications on head CT -- obviously old; ?old prior bleed - mostly would just raise delirium risk and explain current picture even more easily - but would not really change current management. DVT proph - heparin SQ Subjective No acute events overnight. Pt was drowsy during evaluation and quietly stated she felt fine, denied back/buttock pain or discomfort. Review of Systems Review of Systems: All systems reviewed & are unremarkable except as noted in Subjective Physical Exam Physical Exam: General: drowsy, eyes closed but quietly responsive to questions, no acute distress HEENT- mildly dry mucous membranes, thrush on tongue noted Neck- supple, no JVD, trachea midline, no LAD CV- RRR, normal S1 S2, no murmur Resp: CTAB, unlabored respirations Abd: soft, nontender, nondistended Extremities- no cyanosis, no peripheral edema MSK- discomfort on palpation of lateral R buttock and R lower back, some warmth appreciated over R L5-S2 distribution Skin- unable to examine lesions given pt's pain limiting ability to visualize back Neuro- no gross focal motor or sensory deficits Results & Data Results & Data ([facility]) Vital Signs (Past 12 Hours) Vital Signs Temp Pulse Pulse Resp BP Pulse Ox 03/27/21 07:25 36.8 C 86 16 141/61 H 100 03/27/21 05:25 36.7 C 82 18 174/65 H 100 03/27/21 04:00 80 16 146/62 H 95 03/27/21 03:30 79 16 172/78 H 98 03/27/21 02:00 78 16 153/63 H 100 03/27/21 00:35 76 18 163/66 H 100 03/26/21 22:42 76 18 137/68 100
--- NOTE | 2021-03-27 11:34 | Electrocardiogram Report ---
Test Reason : Blood Pressure : / mmHG Vent. Rate : 078 BPM Atrial Rate : 078 BPM P-R Int : 156 ms QRS Dur : 092 ms QT Int : 400 ms P-R-T Axes : 084 066 085 degrees QTc Int : 456 ms Normal sinus rhythm Voltage criteria for left ventricular hypertrophy with secondary ST changes Abnormal ECG No previous ECGs available Confirmed by Adryan Chen ([id number]) on 03/27/2021 11:33:45 AM Referred By: REFERRED SELF Confirmed By:Adryna Chen
--- NOTE | 2021-03-27 13:19 | Billing Data ---
Date of Service March 27, 2021 Coding Level of Care Code 76069 Subseq Hosp Care Lvl 3
[2021-03-27] MEDS: ceFAZolin 1000MG 1,000 MG/7.5 ML SYR IV SCH (16:06)
[2021-03-27] MEDS ORDERED: Flu Vaccine-High Dose (Fluzone-HD) PF 65+ 0.7mL SYR IM ONE (18:00)
[2021-03-27] MEDS ORDERED: PNEUMOCOCCAL Polysaccharide Vaccine 25mcg/0.5mL vial/Syr IM ONE (18:00)
[2021-03-27] MEDS ORDERED: CEFEPIME 1,000 MG in SYRINGE 0 ML IV SCH (22:00)
[2021-03-28 06:34] LABS: Hematocrit (blood only) 26.8 % (37-47); Hemoglobin 8.5 g/dL (12.0-16.0); Mean Corpuscular Hemoglobin 33.2 pg (25-34); Mean Corpuscular Hgb Conc 31.7 g/dL (32-36); Mean Corpuscular Volume 104.7 fL (80-100); Mean Platelet Volume 10.3 fL (7.4-10.4); Platelet Count 252 K/uL (130-400); RDW Standard Deviation 57.4 fL (36.4-46.3); Red Blood Count 2.56 M/uL (4.2-5.4); White Blood Count 12.54 K/uL (4.8-10.8)
[2021-03-28] MEDS: PILOCARPINE HCL 2% OP SOLN 15 ML BTL OPL SCH ×3 (06:39→21:26)
[2021-03-28] MEDS: LEVOTHYROXINE SODIUM 125 MCG TABLET PO SCH (06:39)
[2021-03-28] MEDS: DORZOLAMIDE HCL 2% OPH SOLN 10 ML BTL OPL SCH ×3 (06:39→21:27)
[2021-03-28] MEDS: CLOTRIMAZOLE 10 MG TROCHE BUCCAL SCH ×5 (06:40→21:24)
[2021-03-28 07:02] LABS: Basophils # (auto) 0.02 K/uL (0-0.2); Basophils % (auto) 0.2 %; Eosinophils # (auto) 0.16 K/uL (0-0.5); Eosinophils % (auto) 1.3 %; Immature Granulocytes # (auto) 0.12 K/uL (0.00-0.02); Lymphocytes # (auto) 0.74 K/uL (1.2-3.4); Lymphocytes % (auto) 5.9 %; Monocytes % (auto) 8.8 %; Neutrophils % (auto) 82.8 %
[2021-03-28 07:06] LABS: Alanine Aminotransferase < 3 U/L (7-52); Albumin Globulin Ratio 1.3 (0.9-2); Albumin Level 3.4 gm/dl (3.4-5.0); Alkaline Phosphatase 110 U/L (34-104); Anion Gap 13 (3-11); Aspartate Aminotransferase 8 U/L (13-39); BUN Creatinine Ratio 12.6 (10-20); Bilirubin,Total 0.4 mg/dl (0.2-1.0); Blood Urea Nitrogen 60 mg/dl (6-23); Carbon Dioxide 28 mmol/L (21-32); Chloride 89 mmol/L (98-107); Creatinine Clr Calc Pharmacy 7.6 ml/min; Est GFR (African American) 9.6 ml/min; Est GFR (Non-African American) 8.2 ml/min; Globulin 2.6 gm/dl (2.5-4.0); Glucose 107 mg/dl (70-99(Fasting)); Potassium 4.2 mmol/L (3.5-5.1); Sodium 130 mmol/L (136-145)
[2021-03-28 07:27] LABS: Estimated Average Glucose 114 mg/dl; Hemoglobin A1C 5.6 % (4.5-5.6)
[2021-03-28] MEDS ORDERED: MELATONIN 3 MG TAB PO PRN (08:37)
[2021-03-28] MEDS: INSULIN ASPART PER UNIT SC SCH ×4 (09:06→21:25)
[2021-03-28] MEDS: INSULIN GLARGINE SOLOSTAR 100 UNITS/ML 3 ML PEN SQ SCH (09:08)
[2021-03-28] MEDS: HEPARIN SOD 5,000 UNIT/0.5 ML VIAL SQ SCH ×2 (09:12→21:24)
[2021-03-28] MEDS: amLODIPine BESYLATE 5 MG TAB PO SCH (09:12)
[2021-03-28] MEDS: CHOLECALCIFEROL 5,000 UNITS 125 MCG TAB PO SCH (09:12)
[2021-03-28] MEDS: SODIUM BICARBONATE 650 MG TAB PO SCH (09:13)
[2021-03-28] MEDS: SERTRALINE HCL 50 MG TABLET PO SCH (09:13)
[2021-03-28] MEDS: MIDODRINE HCL 2.5 MG TAB PO SCH (09:14)
[2021-03-28] MEDS: LORATADINE 10 MG TAB PO SCH (09:14)
[2021-03-28] MEDS: LABETALOL HCL 100 MG TAB PO SCH ×2 (09:14→21:24)
[2021-03-28] MEDS: acetaZOLAMIDE 250 MG TAB PO SCH ×4 (09:14→21:24)
[2021-03-28] MEDS: NEPHROCAPS PO SCH (09:14)
[2021-03-28] MEDS: SEVELAMER HCL 800 MG TABLET PO SCH ×3 (09:14→17:55)
[2021-03-28] MEDS: FLUTICASONE/VILANTEROL 100/25MCG 14 PUFFS/INHALER INH SCH (09:15)
[2021-03-28] MEDS ORDERED: EPOETIN ALFA 10,000 UNITS/ML VIAL IV STA (09:32)
--- NOTE | 2021-03-28 10:27 | Nephrology Consultation ---
Date of Consultation March 28, 2021 Assessment & Plan (1) End stage kidney disease: (2) Hypertension: (3) Diabetes mellitus: (4) Anemia due to chronic kidney disease: (5) Shingles: ESKD on HD via left BC AVF, admitted with shingles, AMS. Blood pressure elevated but volume status acceptable. Electrolyte acceptable. -- Schedule for hemodialysis today for 3 hours. Epogen 23941 units x 1 dose during dialysis. Will try to get records from outpatient dialysis unit. -- Discontinue midodrine, discontinue sodium bicarbonate -- left arm nephrology precaution, dose meds for GFR less than 10. Will follow Thank you for allowing me to participate in your patient's care. It was a pleasure to see Michelle. History of Present Illness Reason for Consultation: end-stage renal disease on hemodialysis. Attending Physician: Gerardo Zambrano, DO History of Present Illness Ms. Michelle Bee is a 76-year-old female with past medical history significant for ESRD on HD, hypertension, diabetes, admitted to the hospital with shingles and possible cellulitis. Nephrology consult requested to manage hemodialysis while inpatient. EMR records are reviewed in detail during patient's visit. Michelle was brought to ER on 03/26/21 by her daughter, due to worsening skin lesions on her back and buttocks and intergluteal areas, along with fever and worsening confusion. she was diagnosed with shingles and possible cellulitis and started on acyclovir, daptomycin. Her baseline health status is unknown however during visit she was awake but did not communicate or talk. Nurse who has been taking care of her since yesterday mentioned that she has been this way since admission but it is unclear whether this is her baseline or some acute changes. She seems otherwise comfortable and not in any distress. According to the report, she has been on hemodialysis in [facility] [place], dialyzes on an usual schedule of short treatment 5 days and then off Sunday and Sunday however no records available. Unclear how long she has been on dialysis. She could not provide any information. She does have a functioning left brachiocephalic AV fistula. Since admission her electrolyte has been acceptable. Volume status acceptable. No respiratory distress. Blood pressure running high however her med list shows both amlodipine and Midodrine. Allergies Allergy/AdvReac Type Severity Reaction Status Date / Time propoxyphene [From Darvon] Allergy Severe RESP Verified 03/26/21 23:15 DISTRESS shellfish derived Allergy Severe PER PT'S Verified 03/26/21 23:15 DAUGHTER "SEVERE REACTION LONG TIME AGO". latex Allergy Intermediate Rash Verified 03/26/21 23:15 Home Medications Medication Instructions Recorded Confirmed Type acetaminophen 325 mg tablet 650 mg PO DAILY 03/26/21 03/26/21 History (Tylenol) acetaminophen 325 mg tablet 650 mg PO Q6H PRN MDD 3 03/26/21 03/26/21 History (Tylenol) HOURS. acetazolamide 250 mg tablet 250 mg PO QID 03/26/21 03/26/21 History albuterol sulfate 90 mcg/actuation 2 puff INHALATION Q4H PRN 03/26/21 03/26/21 History aerosol inhaler (ProAir HFA) amlodipine 5 mg tablet 5 mg PO DAILY 03/26/21 03/26/21 History betamethasone dipropionate 0.05 % 1 applic TOPICAL BID 03/26/21 03/26/21 History topical cream brimonidine 0.2 %-timolol 0.5 % 1 drp OPL TIDM 03/26/21 03/26/21 History eye drops (Combigan) carboxymethylcellulose sodium 0.5 1 drp OPR QID 03/26/21 03/26/21 History % eye drops (Refresh Tears) chlorhexidine gluconate 4 % 1 ea TOPICAL BID 03/26/21 03/26/21 History topical liquid (Hibiclens) cholecalciferol (vitamin D3) 125 125 mcg PO DAILY 03/26/21 03/26/21 History mcg (5,000 unit) tablet (Vitamin D3) diphenhydramine-zinc acetate 2 1 applic TOPICAL BID PRN 03/26/21 03/26/21 History %-0.1 % topical cream (Benadryl Extra Strength) dorzolamide 2 % eye drops 1 drp OPL Q8H 03/26/21 03/26/21 History fluticasone furoate 100 1 inh INHALATION DAILY 03/26/21 03/26/21 History mcg-vilanterol 25 mcg/dose inhalation powder (Breo Ellipta) hydrogen peroxide 3 % solution 1 applic TOPICAL DIRECTED 03/26/21 03/26/21 History insulin glargine 100 unit/mL (3 22 unit SUBCUT DAILY 03/26/21 03/26/21 History mL) subcutaneous pen (Basaglar KwikPen U-100 Insulin) insulin lispro 100 unit/mL 4 unit SUBCUT DAILY 03/26/21 03/26/21 History subcutaneous solution (Humalog U-100 Insulin) ipratropium 0.5 mg-albuterol 3 mg 3 ml INHALATION Q6H PRN 03/26/21 03/26/21 History (2.5 mg base)/3 mL nebulization soln labetalol 100 mg tablet 100 mg PO BID 03/26/21 03/26/21 History levothyroxine 125 mcg tablet 125 mcg PO DAILY 03/26/21 03/26/21 History loratadine 10 mg tablet (Claritin) 10 mg PO DAILY 03/26/21 03/26/21 History midodrine 5 mg tablet 5 mg PO BID 03/26/21 03/26/21 History miscellaneous medical supply 03/26/21 03/26/21 History (Ocusoft Eyelid Cleansing Pads) ondansetron HCl 4 mg tablet 4 mg PO Q8H PRN 03/26/21 03/26/21 History pilocarpine HCl 2 % eye drops 1 drp OPL TID 03/26/21 03/26/21 History sertraline 50 mg tablet (Zoloft) 50 mg PO DAILY 03/26/21 03/26/21 History sevelamer carbonate 800 mg tablet 2,400 mg PO TID 03/26/21 03/26/21 History (Renvela) sodium bicarbonate 650 mg tablet 325 mg PO TID 03/26/21 03/26/21 History sulfamethoxazole 800 1 tab PO BID 03/26/21 03/26/21 History mg-trimethoprim 160 mg tablet (Bactrim DS) sumatriptan succinate 50 mg tablet 50 mg PO Q24H PRN 03/26/21 03/26/21 History (Imitrex) triamcinolone acetonide 55 mcg 2 spray INTRANASAL DAILY 03/26/21 03/26/21 History nasal spray aerosol (Nasacort Allergy) vitamin B complex and vitamin C 1 cap PO DAILY 03/26/21 03/26/21 History no.20-folic acid 1 mg capsule Patient History Medical History (Updated 03/28/21 @ 10:24 by Jerilyn Sullivan MD) Allergic rhinitis Anemia due to chronic kidney disease Anxiety with depression CKD (chronic kidney disease) requiring chronic dialysis COPD (chronic obstructive pulmonary disease) Diabetes mellitus End stage kidney disease Glaucoma Hypertension Hypothyroidism (acquired) Migraine headache Urinary tract infection Social History Smoking Status: Never smoker Preferred Language: Maori Feels Safe at Home: Yes Assistive Devices: None Review of Systems Review of Systems: Unobtainable due to mental health condition Physical Exam Constitutional: WD/WN, vitals as above + ill appearing; no acute distress Eyes: + anicteric sclerae ENMT: Ears: no hearing impairment and no external ear abnormality Neck: normal visual inspection Respiratory: normal respiratory effort; no respiratory distress Auscultation: lungs clear to auscultation bilaterally Cardiovascular: Rate/Rhythm: regular rate and regular rhythm Heart Sounds: normal S1 and normal S2 Extremities: no edema Gastrointestinal (Abdomen): Inspection/Auscultation: abdomen normal to inspection and normal bowel sounds Percussion/Palpation: abdomen soft; abdomen nontender Skin: + rash Neurologic: awake detail exam was not possible Psychiatric: Orientation: alert Results & Data ([facility]) Vital Signs (Past 12 Hours) Vital Signs Temp Pulse Pulse Resp BP Pulse Ox 03/28/21 08:35 36.3 C L 87 100 H 18 161/53 H 100 PG Care Time/CCT Total # of Minutes Spent Total Time Spent with Patient: Total time spent is greater than 50% in coordination of care (as documented) at patient's floor/unit and/or counseling patient: Coding Level of Care Code 12904 Initial Inpt Care Lvl 2 Diagnoses End stage kidney disease N18.6 Hypertension I10 Diabetes mellitus E11.9 Anemia due to chronic kidney disease N18.9; D63.1 Shingles B02.9
--- NOTE | 2021-03-28 10:50 | Hospitalist Progress Note ---
Date of Service March 28, 2021 Assessment & Plan (1) Abscess or cellulitis of back: Plan: 1) Shingles: -Vesicular rash with mildly erythematous base noted among multiple dermatomes across T7-S1/S2 -Possible mildly disseminated shingles rash -Continue acyclovir 500 mg IV q8h, anticipated 7 days of therapy 2) Cellulitis of back: -Admission exam suggestive of cellulitis with decubitus ulcer stage II in R intergluteal area, MRSA nasal swab positive -Degree of infection not severe and given hemodynamic stability, largely superficial rash in area of low-risk for vascular compromise, will likely not require MRSA and pseudomonal coverage -Discontinued daptomycin/cefepime, started cefazolin 1g q24h on 03/27 with doses to be delivered after HD per pharmacy recommendation -Continue cefazolin 1g q24h -Plan to discharge home on Keflex if improvement noted on cefazolin -Trend CBC, BMP 3) CKD (chronic kidney disease) requiring chronic dialysis: -CKD requiring chronic dialysis/hypertension-continue acetazolamide, amlodipine, labetalol, midodrine, sevelamer carbonate, sodium bicarbonate -Creatinine 3.65 upon admission, BUN 46. Increase to BUN 60/Cr 4.8 today. Unknown what baseline is. -Patient reportedly receives small treatments of dialysis Sunday through Sunday (or possibly Sunday + Sunday), andthen is given off Sunday and Sunday. -Nephrology consulted- recommended discontinue midodrine/sodium bicarbonate, initiate hemodialysis 4) Oral candidiasis -Continue Mycelex troches 5x daily x5 days 5) DM2 -Glucose 294 upon admission, BSGs within range currently -Continue insulin glargine 22 units daily -Accu-Cheks before meals and at bedtime with NovoLog coverage per scale 6) Glaucoma -Continue outpatient regimen: Acetazolamide, Combigan, dorzolamide, and pilocarpine (2) Shingles: (3) Migraine headache: (4) Urinary tract infection: (5) Anxiety with depression: (6) Allergic rhinitis: (7) COPD (chronic obstructive pulmonary disease): (8) Hypothyroidism (acquired): (9) Hypertension: (10) Diabetes mellitus: (11) Glaucoma: (12) CKD (chronic kidney disease) requiring chronic dialysis: Admission and Anticipated Discharge Date Admission Date: March 27, 2021 Supervising Physician Co-Signing Physician Notes I personally examined the patient and verified all johnson points of history and exa m, discussed case, and agree with decision making with Dr Welsh. I agree with the impression and plan as noted in his documentation. Upon our examination this morning, the patient is undergoing hemodialysis and her hospital room. She is awake but nonverbal. No meaningful history of present illness review of systems is elicited. Exam 159/79, 95, 18, 36.7, 1 9% on room air Lying supine, hemodialysis running, no distress appreciated. Respirations are nonlabored Heart is mildly tachycardic Data WBC 12.54, hemoglobin 8.5 Sodium 130, potassium 4.2, BUN 60, creatinine 4.78 Impression and Plan Shingles w possible superimposed cellulitis Continue acyclovir and cefazolin ESRD Appreciate nephrology consultation Additional per resident documentation Subjective No acute events overnight. Pt was staring off into distance during evaluation but responded to questions, quietly stated she felt fine, denied back/buttock pain or discomfort. Review of Systems Review of Systems: All systems reviewed & are unremarkable except as noted in Subjective Physical Exam Physical Exam: General: staring off into distance, no acute distress HEENT- mildly dry mucous membranes, no conjunctival injection Neck- supple, no JVD, trachea midline, no LAD CV- RRR, normal S1 S2, no murmur Resp: CTAB, unlabored respirations Abd: soft, nontender, nondistended Extremities- no cyanosis, no peripheral edema MSK- discomfort on palpation of lateral R buttock and R lower back Skin- scattered ulcerations along L T7-S1/S2 area with no crossing of midline, some warmth appreciated over R L5-S2 distribution, warm + tender erythema around T10 Neuro- no gross focal motor or sensory deficits Results & Data Results & Data ([facility]) Vital Signs (Past 12 Hours) Vital Signs Temp Pulse Pulse Resp BP Pulse Ox 03/28/21 08:35 36.3 C L 87 100 H 18 161/53 H 100 (1) Urinary tract infection Hematuria presence: without hematuria Urinary tract infection type: acute cystitis Qualified Code(s): N30.00 - Acute cystitis without hematuria
[2021-03-28] MEDS: ceFAZolin 1000MG 1,000 MG/7.5 ML SYR IV SCH (17:52)
[2021-03-28] MEDS: DEXTROSE 5% IV SCH (19:43)
[2021-03-28] MEDS: ACYCLOVIR SOD IV SCH (19:43)
[2021-03-28] MEDS ORDERED: DAPTOmycin 200 MG in SYRINGE 0 ML IV SCH (21:00)
[2021-03-29] MEDS: PILOCARPINE HCL 2% OP SOLN 15 ML BTL OPL SCH ×3 (05:41→21:13)
[2021-03-29] MEDS: DORZOLAMIDE HCL 2% OPH SOLN 10 ML BTL OPL SCH ×3 (05:41→21:13)
[2021-03-29] MEDS: LEVOTHYROXINE SODIUM 125 MCG TABLET PO SCH (05:41)
[2021-03-29 05:49] LABS: Hematocrit (blood only) 25.5 % (37-47); Mean Corpuscular Hgb Conc 31.4 g/dL (32-36); Mean Corpuscular Volume 108.5 fL (80-100); Mean Platelet Volume 9.8 fL (7.4-10.4); Platelet Count 255 K/uL (130-400); RDW Coefficient of Variation 15.2 % (11.5-14.5); RDW Standard Deviation 59.8 fL (36.4-46.3); Red Blood Count 2.35 M/uL (4.2-5.4); White Blood Count 9.18 K/uL (4.8-10.8)
[2021-03-29 06:17] LABS: Basophils # (auto) 0.01 K/uL (0-0.2); Basophils % (auto) 0.1 %; Eosinophils # (auto) 0.12 K/uL (0-0.5); Eosinophils % (auto) 1.3 %; Immature Granulocytes # (auto) 0.14 K/uL (0.00-0.02); Immature Granulocytes % (auto) 1.5 %; Lymphocytes # (auto) 1.39 K/uL (1.2-3.4); Lymphocytes % (auto) 15.1 %; Monocytes # (auto) 0.46 K/uL (0.11-0.59); Neutrophils # (auto) 7.06 K/uL (1.4-6.5); RBC Morphology Unremarkable
[2021-03-29 06:28] LABS: Alanine Aminotransferase < 3 U/L (7-52); Albumin Globulin Ratio 1.4 (0.9-2); Albumin Level 3.2 gm/dl (3.4-5.0); Alkaline Phosphatase 97 U/L (34-104); Anion Gap 10 (3-11); Aspartate Aminotransferase 11 U/L (13-39); BUN Creatinine Ratio 9.6 (10-20); Bilirubin,Total 0.4 mg/dl (0.2-1.0); Blood Urea Nitrogen 32 mg/dl (6-23); Carbon Dioxide 31 mmol/L (21-32); Chloride 95 mmol/L (98-107); Creatinine Clr Calc Pharmacy 10.9 ml/min; Est GFR (African American) 14.9 ml/min; Est GFR (Non-African American) 12.8 ml/min; Globulin 2.3 gm/dl (2.5-4.0); Glucose 45 mg/dl (70-99(Fasting)); Potassium 3.8 mmol/L (3.5-5.1); Sodium 136 mmol/L (136-145); Total Protein 5.5 gm/dl (6.0-8.3)
[2021-03-29] MEDS: DEXTROSE 50% 50 ML SYRINGE IV PRN (06:35)
[2021-03-29 07:58] LABS: Folate (Folic Acid) > 22.30 ng/ml (>5.38)
[2021-03-29 07:59] LABS: Vitamin B12 939 pg/ml (211-911)
[2021-03-29] MEDS: CLOTRIMAZOLE 10 MG TROCHE BUCCAL SCH ×2 (08:46→11:05)
[2021-03-29] MEDS: SEVELAMER HCL 800 MG TABLET PO SCH (08:58)
[2021-03-29] MEDS: HEPARIN SOD 5,000 UNIT/0.5 ML VIAL SQ SCH ×2 (09:00→20:15)
[2021-03-29] MEDS: FLUTICASONE/VILANTEROL 100/25MCG 14 PUFFS/INHALER INH SCH (09:00)
--- NOTE | 2021-03-29 09:30 | Hospitalist Progress Note ---
Date of Service March 29, 2021 Assessment & Plan (1) Abscess or cellulitis of back: Plan: 1) AMS -Degree of baseline dementia/cognitive impairment established and worsened by acute infection 2/2 shingles and cellulitis -Spoke with pt's family today who reports current mental status is not her baseline, pt is acutely altered -Failed speech evaluation today, made NPO and home meds held/converted to IV -NPO, started mIVF D5 1/2 NS per nephrology 2) Shingles: -Vesicular rash with mildly erythematous base noted among multiple dermatomes across T7-S1/S2 -Possible mildly disseminated shingles rash -Continue acyclovir 500 mg IV q8h, anticipated 7 days total of therapy 3) Cellulitis of back: -Admission exam suggestive of cellulitis with decubitus ulcer stage II in R intergluteal area, MRSA nasal swab positive -Degree of infection not severe and given hemodynamic stability, largely superficial rash in area of low-risk for vascular compromise, will likely not require MRSA and pseudomonal coverage -Discontinued daptomycin/cefepime, started cefazolin 1g q24h on 03/27 with doses to be delivered after HD per pharmacy recommendation -Continue cefazolin 1g q24h -Plan to discharge home on Keflex if improvement noted on cefazolin -Trend CBC, BMP 4) CKD (chronic kidney disease) requiring chronic dialysis: -CKD requiring chronic dialysis/hypertension but due to NPO 2/2 AMS, holding acetazolamide, amlodipine, labetalol, midodrine, sevelamer carbonate, sodium b icarbonate -Creatinine 3.65 upon admission, BUN 46. 32 and 3.3 today following dialysis on 03/28 -Patient reportedly receives small treatments of dialysis Sunday through Sunday (or possibly Sunday + Sunday), andthen is given off Sunday and Sunday -Nephrology consulted- recommended discontinue midodrine/sodium bicarbonate, initiate hemodialysis -Next HD session tomorrow 03/30 5) Oral candidiasis -Holding clotrimazole due to NPO 6) DM2 -Glucose 294 upon admission, BSGs within range currently in low 100s but noted hypoglycemia to 45 (corrected to 223 after dextrose) earlier today -Will reduce basal insulin 22 units Lantus to 18 -Accu-Cheks before meals and at bedtime with NovoLog coverage per scale 7) Glaucoma -Continue outpatient regimen: Hold acetazolamide due to NPO but continue Combig an, dorzolamide, and pilocarpine FENGI: NPO, D5 1/2 NS Code status: DNR/DNI DVT ppx: Heparin Isolation: Airbone precautions Dispo: Return to SNF pending improvement (2) Shingles: (3) Migraine headache: (4) Urinary tract infection: (5) Anxiety with depression: (6) Allergic rhinitis: (7) COPD (chronic obstructive pulmonary disease): (8) Hypothyroidism (acquired): (9) Hypertension: (10) Diabetes mellitus: (11) Glaucoma: (12) CKD (chronic kidney disease) requiring chronic dialysis: Admission and Anticipated Discharge Date Admission Date: March 27, 2021 Supervising Physician Co-Signing Physician Notes I personally examined the patient and verified all johnson points of history and exam, discussed case, and agree with decision making with Dr Welsh. I agree with the impression and plan as noted in his documentation. Exam 169/62, 85, 16, 37.0, 90% on room air Lying supine. Awakens to voice but no attempts at medication Respirations are nonlabored Heart is regular A left lumbar area demonstrates healing coalesced vesicles on erythematous base, erythema suggestive more of a secondary cellulitis. Overall, this looks improved compared to previous documented exams. Data WBC 9.18, hemoglobin 8, platelet count 255 Sodium 136, potassium 3.8, BUN 32, creatinine 3.32. Vitamin B12 939, folate greater than 22.3 Impression and Plan Shingles w possible superimposed cellulitis Continue acyclovir and cefazolin Mental status change Underlying dementia, and after discussing with family, not her baseline but not too far from baseline, less likely delirium secondary to illness/hospitalization Unable to take p.o.'s at this time, this is new. ESRD Anemia Appreciate nephrology consultation Epogen given / Additional per resident documentation Subjective No acute events overnight. Pt had eyes closed and mouth open, appeared to re spond to loud sound but largely obtunded on evaluation. Review of Systems Review of Systems: Unable to assess due to AMS Physical Exam Physical Exam: General: eyes closed with mouth open, no acute distress HEENT- dry mucous membranes, no conjunctival injection Neck- supple, no JVD, trachea midline, no LAD CV- RRR, normal S1 S2, no murmur Resp: diminished breath sounds throughout, unlabored respirations Abd: soft, nontender, nondistended Extremities- no cyanosis, no peripheral edema MSK- discomfort on palpation of lateral R buttock and R lower back Skin- scattered ulcerations along L T7-S1/S2 area with no crossing of midline, some warmth appreciated over R L5-S2 distribution, warm + tender erythema around T10 Neuro- less responsive to noxious stimuli Results & Data Results & Data ([facility]) Vital Signs (Past 12 Hours) Vital Signs Temp Pulse Resp BP Pulse Ox 03/29/21 07:05 37.0 C 85 16 169/62 H 99 Resident Activity Tracking Resident Involvement: Resident Care Provided Care Provided: Adult Hospital Medicine (1) Urinary tract infection Hematuria presence: without hematuria Urinary tract infection type: acute cystitis Qualified Code(s): N30.00 - Acute cystitis without hematuria
[2021-03-29] MEDS: INSULIN ASPART PER UNIT SC SCH ×4 (09:57→18:17)
[2021-03-29] MEDS: CHOLECALCIFEROL 5,000 UNITS 125 MCG TAB PO SCH (09:58)
[2021-03-29] MEDS: amLODIPine BESYLATE 5 MG TAB PO SCH (09:58)
[2021-03-29] MEDS: acetaZOLAMIDE 250 MG TAB PO SCH (09:58)
[2021-03-29] MEDS: NEPHROCAPS PO SCH (09:59)
[2021-03-29] MEDS: SERTRALINE HCL 50 MG TABLET PO SCH (09:59)
[2021-03-29] MEDS: LORATADINE 10 MG TAB PO SCH (09:59)
[2021-03-29] MEDS: LABETALOL HCL 100 MG TAB PO SCH (09:59)
--- NOTE | 2021-03-29 10:22 | Nephrology Progress Note ---
Date of Service March 29, 2021 Assessment & Plan (1) End stage kidney disease: (2) Hypertension: (3) Diabetes mellitus: (4) Anemia due to chronic kidney disease: (5) Shingles: Plan: ESKD on HD via left BC AVF, admitted with ruby AMS. Blood pressure elevated but volume status and electrolyte acceptable. -- plan for hemodialysis tomorrow for 3 hours. Epogen 60211 units given on 03/28/21. -- left arm nephrology precaution, dose meds for GFR less than 10. Will follow. Admission and Anticipated Discharge Date Admission Date: March 27, 2021 Subjective Michelle has been somewhat lethargic since yesterday, seems comfortable but did not respond or opened eyes. Tolerated hemodialysis yesterday. blood pressure slightly elevated however volume status and electrolyte acceptable. Review of Systems Review of Systems: detail ROS was not possible due to reduced responsiveness. Physical Exam Constitutional: WD/WN, vitals as above + ill appearing and + lethargic; no acute distress Respiratory: no respiratory distress Auscultation: + diminished lung sounds Cardiovascular: Rate/Rhythm: regular rate and regular rhythm Heart Sounds: normal S1 and normal S2 Extremities: no edema Neurologic: + obtunded Results & Data ([facility]) Vital Signs (Past 12 Hours) Vital Signs Temp Pulse Resp BP Pulse Ox 03/29/21 07:05 37.0 C 85 16 169/62 H 99 PG Care Time/CCT Total # of Minutes Spent Total Time Spent with Patient: Total time spent is greater than 50% in coordination of care (as documented) at patient's floor/unit and/or counseling patient: Coding Level of Care Code 43228 Subseq Hosp Care Lvl 2 Diagnoses End stage kidney disease N18.6 Hypertension I10 Diabetes mellitus E11.9 Anemia due to chronic kidney disease N18.9; D63.1 Shingles B02.9
[2021-03-29] MEDS: INSULIN GLARGINE SOLOSTAR 100 UNITS/ML 3 ML PEN SQ SCH (10:50)
[2021-03-29] MEDS ORDERED: METOPROLOL TARTRATE 1 MG/ML VIAL IV PRN (13:35)
[2021-03-29] MEDS ORDERED: hydrALAZINE HCL 20 MG/ML VIAL IV PRN (13:58)
[2021-03-29] MEDS: D5W AND 1/2NSS 1,000 ML IV SCH (14:09)
[2021-03-29] MEDS ORDERED: Nursing to Pharmacy Communication SCH (17:00)
[2021-03-29] MEDS: ceFAZolin 1000MG 1,000 MG/7.5 ML SYR IV SCH (17:52)
[2021-03-29] MEDS: DEXTROSE 5% IV SCH (19:28)
[2021-03-29] MEDS: ACYCLOVIR SOD IV SCH (19:28)
[2021-03-29] MEDS: TIMOLOL MALEATE 0.5% OP SOLN 5 ML BTL OPL SCH (20:15)
[2021-03-29] MEDS: BRIMONIDINE TARTRATE 0.2% 5ML OPL SCH (21:13)
[2021-03-30] MEDS: INSULIN ASPART PER UNIT SC SCH ×4 (00:12→18:33)
[2021-03-30] MEDS: D5W AND 1/2NSS 1,000 ML IV SCH ×2 (03:29→16:33)
[2021-03-30] MEDS: PILOCARPINE HCL 2% OP SOLN 15 ML BTL OPL SCH ×3 (05:10→22:47)
[2021-03-30] MEDS: DORZOLAMIDE HCL 2% OPH SOLN 10 ML BTL OPL SCH ×3 (05:10→22:47)
[2021-03-30 06:11] LABS: Hematocrit (blood only) 27.3 % (37-47); Hemoglobin 8.4 g/dL (12.0-16.0); Mean Corpuscular Hemoglobin 33.2 pg (25-34); Mean Corpuscular Hgb Conc 30.8 g/dL (32-36); Mean Corpuscular Volume 107.9 fL (80-100); Mean Platelet Volume 10.4 fL (7.4-10.4); Platelet Count 305 K/uL (130-400); RDW Coefficient of Variation 15.1 % (11.5-14.5); Red Blood Count 2.53 M/uL (4.2-5.4); White Blood Count 9.43 K/uL (4.8-10.8)
[2021-03-30 06:32] LABS: BUN Creatinine Ratio 8.7 (10-20); Calcium 8.2 mg/dl (8.5-10.1); Creatinine Clr Calc Pharmacy 8.1 ml/min; Est GFR (African American) 10.3 ml/min; Est GFR (Non-African American) 8.9 ml/min; Potassium 4.2 mmol/L (3.5-5.1)
[2021-03-30] MEDS: FLUTICASONE/VILANTEROL 100/25MCG 14 PUFFS/INHALER INH SCH (09:17)
[2021-03-30] MEDS: TIMOLOL MALEATE 0.5% OP SOLN 5 ML BTL OPL SCH ×3 (09:20→22:50)
[2021-03-30] MEDS: HEPARIN SOD 5,000 UNIT/0.5 ML VIAL SQ SCH ×2 (09:21→22:51)
[2021-03-30] MEDS: BRIMONIDINE TARTRATE 0.2% 5ML OPL SCH ×3 (09:24→22:49)
[2021-03-30] MEDS: INSULIN GLARGINE SOLOSTAR 100 UNITS/ML 3 ML PEN SQ SCH (09:36)
--- NOTE | 2021-03-30 10:18 | Nephrology Progress Note ---
Date of Service March 30, 2021 Assessment & Plan (1) End stage kidney disease: (2) Anemia due to chronic kidney disease: (3) AMS (altered mental status): Plan: ESKD on HD via left BC AVF, admitted with shingles, AMS. Blood pressure, volume status and electrolyte acceptable. -- since pt remain NPO, volume status acceptable, okay to continue on maintenance IV fluid. -- as electrolyte remains acceptable, will hold dialysis today, plan for hemodialysis tomorrow for 3 hours. Epogen 95057 units given on 03/28/21. -- left arm nephrology precaution, dose meds for GFR less than 10. Will follow. Admission and Anticipated Discharge Date Admission Date: March 27, 2021 Subjective Pt remained obtunded and minimally responsive, unclear whether this is her baseline. BP fair, electrolyte volume status acceptable. Review of Systems Review of Systems: detail ROS was not possible due to reduced responsiveness. Physical Exam Constitutional: WD/WN, vitals as above + ill appearing and + lethargic; no acute distress Respiratory: no respiratory distress Auscultation: + diminished lung sounds Cardiovascular: Rate/Rhythm: regular rate and regular rhythm Heart Sounds: normal S1 and normal S2 Extremities: no edema Neurologic: + obtunded Results & Data ([facility]) Vital Signs (Past 12 Hours) Vital Signs Temp Pulse Resp BP Pulse Ox 03/30/21 07:37 36.9 C 90 16 144/61 H 100 03/29/21 23:44 36.7 C 96 H 20 153/63 H 100 PG Care Time/CCT Total # of Minutes Spent Total Time Spent with Patient: Total time spent is greater than 50% in coordination of care (as documented) at patient's floor/unit and/or counseling patient: Coding Level of Care Code 05298 Subseq Hosp Care Lvl 2 Diagnoses End stage kidney disease N18.6 Anemia due to chronic kidney disease N18.9; D63.1 AMS (altered mental status) R41.82
--- NOTE | 2021-03-30 12:43 | Hospitalist Progress Note ---
Date of Service March 30, 2021 Assessment & Plan (1) Abscess or cellulitis of back: Plan: 1) AMS -Degree of baseline dementia/cognitive impairment established and worsened by acute infection 2/2 shingles and cellulitis -Spoke with pt's family who reports current mental status is not her baseline, pt is acutely altered but not too far from baseline -Failed speech evaluation 03/29 with no improvement on re-evaluation 03/30, NPO and home meds held/converted to IV -Continue mIVF D5 1/2 NS per nephrology, euvolemic on exam -Suspect this AMS is multifactorial given her baseline dementia, ESRD, multiple comorbidities, acute illness. Short-term prognosis appears unfortunate but will continue monitoring for hopeful improvement -Goals of care discussion with family planned for today 2) Shingles: -Healing vesicular rash with mildly erythematous base noted among multiple dermatomes across T7-S1/S2 -Continue acyclovir 500 mg IV q8h, anticipated 7 days total of therapy 3) Cellulitis of back: -Admission exam suggestive of cellulitis with decubitus ulcer stage II in R intergluteal area, MRSA nasal swab positive -Degree of infection not severe and given hemodynamic stability, largely superficial rash in area of low-risk for vascular compromise, will likely not require MRSA and pseudomonal coverage -Discontinued daptomycin/cefepime, started cefazolin 1g q24h on 03/27 -Continue cefazolin 1g q24h given improvement noted on exam despite AMS -Trend CBC, BMP 4) CKD (chronic kidney disease) requiring chronic dialysis: -CKD requiring chronic dialysis/hypertension but due to NPO 2/2 AMS, holding acetazolamide, amlodipine, labetalol, midodrine, sevelamer carbonate, sodium bicarbonate -Creatinine 4.48, BUN 39 today. Electrolytes otherwise wnl -Patient reportedly receives small treatments of dialysis Sunday through Sunday (or possibly Sunday + Sunday), andthen is given off Sunday and Sunday -Nephrology consulted 03/28- recommended discontinue midodrine/sodium bicarbonate, initiate hemodialysis -HD session 03/28, next tomorrow 03/30 5) Oral candidiasis -Holding clotrimazole due to NPO 6) DM2 -BSGs stable now, one incident of hypoglycemia to 45 (corrected to 223) on day prior -Continue basal insulin 18 units (reduced from home dose 22), SSI -Accu-Cheks TID and at bedtime with NovoLog coverage per scale 7) Glaucoma -Continue outpatient regimen: Hold acetazolamide due to NPO, continue Combigan, dorzolamide, and pilocarpine FENGI: NPO, D5 1/2 NS Code status: DNR/DNI DVT ppx: Heparin Isolation: Airbone precautions Dispo: Return to SNF pending improvement (2) Shingles: (3) Migraine headache: (4) Urinary tract infection: (5) Anxiety with depression: (6) Allergic rhinitis: (7) COPD (chronic obstructive pulmonary disease): (8) Hypothyroidism (acquired): (9) Hypertension: (10) Diabetes mellitus: (11) Glaucoma: (12) CKD (chronic kidney disease) requiring chronic dialysis: Admission and Anticipated Discharge Date Admission Date: March 27, 2021 Supervising Physician Co-Signing Physician Notes I personally examined the patient and verified all johnson points of history and exam, discussed case, and agree with decision making with Dr Welsh. I agree with the impression and plan as noted in his documentation. Exam 144/61, 90, 16, 36.9, 100% room air Lying supine. Sleeping. Minimal response to loud voice. Respirations are nonlabored; no distress appreciated. Heart is regular Data Hemoglobin 8.4, platelet count 305 Sodium 135, potassium 4.2, BUN 39, creatinine 4.48 Impression and Plan Shingles w possible superimposed cellulitis Continue acyclovir and cefazolin Mental status change Underlying dementia, and after discussing with family, not her baseline but not too far from baseline, less likely delirium secondary to illness/hospitalization Unable to take p.o.'s at this time, this is new. I suspect this is all secondary to end-stage dementia and end-stage renal failure, in combination with acute infection, and hospitalization. Fortunately, she seems comfortable despite the shingles infection. We will discuss with family a more palliative approach. ESRD Anemia Appreciate nephrology consultation Epogen and HD per nephrology Additional per resident documentation Subjective No acute events overnight. Pt's mental status did not improve and she remains non-verbal, apparently minimally responsive to commands from nursing staff. Unable to interview pt today given her AMS Review of Systems Review of Systems: Unable to assess due to AMS Physical Exam Physical Exam: General: eyes closed with mouth open, no acute distress but cannot fully ascertain if she is in discomfort or not HEENT- dry mucous membranes, no conjunctival injection, oral thrush noted on lips and buccal mucosa Neck- supple, no JVD, trachea midline, no LAD CV- RRR, normal S1 S2, no murmur Resp: diminished breath sounds throughout, no increased work of breathing Abd: soft, nontender, nondistended Extremities- no cyanosis, no peripheral edema Skin- scattered ulcerations along L T7-S1/S2 area with no crossing of midline, reduced warmth appreciated over R L5-S2 distribution, less warmth and erythema around T10 Neuro- obtunded, non-responsive to noxious stimuli Results & Data Results & [facility] ([facility]) Vital Signs (Past 12 Hours) Vital Signs Temp Pulse Resp BP Pulse Ox 03/30/21 07:37 36.9 C 90 16 144/61 H 100 Resident Activity Tracking Resident Involvement: Resident Care Provided Care Provided: Adult Hospital Medicine (1) Urinary tract infection Hematuria presence: without hematuria Urinary tract infection type: acute cystitis Qualified Code(s): N30.00 - Acute cystitis without hematuria
[2021-03-30] MEDS: ceFAZolin 1000MG 1,000 MG/7.5 ML SYR IV SCH (16:41)
[2021-03-30] MEDS: DEXTROSE 50% 50 ML SYRINGE IV PRN (18:09)
[2021-03-30] MEDS: DEXTROSE 5% IV SCH (22:36)
[2021-03-30] MEDS: ACYCLOVIR SOD IV SCH (22:36)
[2021-03-31] MEDS: D5W AND 1/2NSS 1,000 ML IV SCH (06:12)
[2021-03-31] MEDS: PILOCARPINE HCL 2% OP SOLN 15 ML BTL OPL SCH ×2 (06:14→13:56)
[2021-03-31] MEDS: DORZOLAMIDE HCL 2% OPH SOLN 10 ML BTL OPL SCH ×2 (06:14→13:56)
[2021-03-31] MEDS: INSULIN ASPART PER UNIT SC SCH ×4 (06:31→18:31)
--- NOTE | 2021-03-31 07:14 | Hospitalist Progress Note ---
Date of Service March 31, 2021 Assessment & Plan (1) Abscess or cellulitis of back: Plan: 1) AMS -Degree of baseline dementia/cognitive impairment established and worsened by acute infection 2/2 shingles and cellulitis -Spoke with pt's family who reports current mental status is not her baseline, pt is acutely altered but not too far from baseline -Failed speech evaluation 03/29 with no improvement on serial re-evaluations, NPO and home meds held/converted to IV -Continue mIVF D5 1/2 NS per nephrology, euvolemic on exam -Suspect this AMS is multifactorial given her baseline dementia, ESRD, multiple comorbidities, acute illness. Short-term prognosis appears unfortunate but will continue monitoring for hopeful improvement -Goals of care discussion with family planned for today 2) Shingles, questionable: -Ulcerated vesicular rash with mildly erythematous base noted among multiple dermatomes across T7-S1/S2 -Unsure if this is true shingles given non-classic presentation, will not pursue Tzanck smear -Continue acyclovir 500 mg IV q8h, anticipated 7 days total of therapy 3) Cellulitis of back: -Admission exam suggestive of cellulitis with decubitus ulcer stage II in R intergluteal area, MRSA nasal swab positive -Degree of infection not severe and given hemodynamic stability, largely superficial rash in area of low-risk for vascular compromise, will likely not require MRSA and pseudomonal coverage -Discontinued daptomycin/cefepime, started cefazolin 1g q24h on 03/27 -Continue cefazolin 1g q24h given improvement noted on exam despite AMS -Trend CBC, BMP 4) CKD (chronic kidney disease) requiring chronic dialysis: -CKD requiring chronic dialysis/hypertension but due to NPO 2/2 AMS, holding acetazolamide, amlodipine, labetalol, midodrine, sevelamer carbonate, sodium bicarbonate -Creatinine 5.1, BUN 39 today. Electrolytes otherwise wnl -Patient reportedly receives small treatments of dialysis Sunday through Sunday (or possibly Sunday + Sunday), andthen is given off Sunday and Sunday -Nephrology consulted 03/28- recommended discontinue midodrine/sodium bicarbonate, initiate hemodialysis -HD session 03/28, next today 03/31 5) Oral candidiasis -Holding clotrimazole due to NPO 6) DM2 -BSGs stable now, episode of hypoglycemia to 53 last night but have since normalized s/p correction with dextrose -Continue basal insulin 18 units (reduced from home dose 22), SSI -BSGs largely stable -Accu-Cheks TID and at bedtime with NovoLog coverage per scale 7) Glaucoma -Continue outpatient regimen: Hold acetazolamide due to NPO, continue Combigan, dorzolamide, and pilocarpine FENGI: NPO, D5 1/2 NS Code status: DNR/DNI DVT ppx: Heparin Isolation: Airbone precautions Dispo: Return to SNF pending improvement (2) Shingles: (3) Migraine headache: (4) Urinary tract infection: (5) Anxiety with depression: (6) Allergic rhinitis: (7) COPD (chronic obstructive pulmonary disease): (8) Hypothyroidism (acquired): (9) Hypertension: (10) Diabetes mellitus: (11) Glaucoma: (12) CKD (chronic kidney disease) requiring chronic dialysis: Admission and Anticipated Discharge Date Admission Date: March 27, 2021 Supervising Physician Co-Signing Physician Notes I personally examined the patient and verified all johnson points of history and exam, discussed case, and agree with decision making with Dr Welsh. I agree with the impression and plan as noted in his documentation. Exam 184/91, 86, 18, 37, 90% on room air Lying supine. Sleeping. Minimal response to loud voice. Respirations are nonlabored; no distress appreciated. Heart is regular The back is examined. There is some localized erythema, some circular/oval areas of ulceration/skin breakdown, but not discrete vesicles. Overall, looks to be improving. Data Sodium 132, potassium 3.7, BUN 43, creatinine 5.14 Impression and Plan Shingles w possible superimposed cellulitis Really cannot be certain this is shingles, slightly not a classic presentation Nonetheless, it does seem to be improving Continue acyclovir and cefazolin Mental status change Dementia, end-stage ESRD Anemia Appreciate nephrology consultation Epogen and HD per nephrology Lengthy discussion with the family late yesterday via telephone; expecting them to arrive later this afternoon for continued conversation. Unfortunate, the patient is not eating. Discussion on the phone revolved around a more palliative approach. I think she is to end-stage conditions (renal failure and dementia) which is most accounting for her overall presentation. Additional per resident documentation Subjective No acute events overnight. Pt's mental status did not improve and she remains non-verbal, apparently minimally responsive to commands from nursing staff. Again unable to interview pt today given her AMS Review of Systems Review of Systems: Unable to assess due to AMS Physical Exam Physical Exam: General: eyes closed with mouth open, no acute distress but cannot fully ascertain if she is in discomfort or not HEENT- dry mucous membranes, no conjunctival injection, oral thrush noted on lips and buccal mucosa Neck- supple, no JVD, trachea midline, no LAD CV- RRR, normal S1 S2, no murmur Resp: diminished breath sounds throughout, no increased work of breathing Abd: soft, nontender, nondistended Extremities- no cyanosis, no peripheral edema Skin- scattered ulcerations along L T7-S1/S2 area with no crossing of midline, reduced warmth appreciated over R L5-S2 distribution, less warmth but unchanged erythema around T10 Neuro- obtunded, non-responsive to noxious stimuli Results & Data Results & [facility] ([facility]) Vital Signs (Past 12 Hours) Vital Signs Temp Pulse Resp BP Pulse Ox 03/30/21 23:56 36.6 C 83 20 191/72 H 100 Resident Activity Tracking Resident Involvement: Resident Care Provided Care Provided: Adult Hospital Medicine (1) Urinary tract infection Hematuria presence: without hematuria Urinary tract infection type: acute cystitis Qualified Code(s): N30.00 - Acute cystitis without hematuria
[2021-03-31] MEDS: BRIMONIDINE TARTRATE 0.2% 5ML OPL SCH ×2 (08:33→13:56)
[2021-03-31] MEDS: FLUTICASONE/VILANTEROL 100/25MCG 14 PUFFS/INHALER INH SCH (08:33)
[2021-03-31] MEDS: HEPARIN SOD 5,000 UNIT/0.5 ML VIAL SQ SCH (08:33)
[2021-03-31] MEDS: TIMOLOL MALEATE 0.5% OP SOLN 5 ML BTL OPL SCH ×2 (08:34→13:56)
[2021-03-31] MEDS: INSULIN GLARGINE SOLOSTAR 100 UNITS/ML 3 ML PEN SQ SCH (08:35)
[2021-03-31 09:02] LABS: BUN Creatinine Ratio 8.4 (10-20); Calcium 8.1 mg/dl (8.5-10.1); Est GFR (African American) 8.8 ml/min; Est GFR (Non-African American) 7.6 ml/min; Potassium 3.7 mmol/L (3.5-5.1)
--- NOTE | 2021-03-31 10:35 | Nephrology Progress Note ---
Date of Service March 31, 2021 Assessment & Plan (1) End stage kidney disease: (2) Anemia due to chronic kidney disease: (3) AMS (altered mental status): Plan: ESKD on HD via left BC AVF, admitted with shingles, AMS. Blood pressure elevated, volume status and electrolyte acceptable. -- HD today for 3 hours. Epogen 44844 units with HD today -- left arm nephrology precaution, dose meds for GFR less than 10. Will follow. Admission and Anticipated Discharge Date Admission Date: March 27, 2021 Subjective Clinically remain about the same, did not respond or opened eyes. BP high, electrolyte, volume status acceptable. Review of Systems Review of Systems: detail ROS was not possible due to reduced responsiveness. Physical Exam Constitutional: + ill appearing and + lethargic; no acute distress Respiratory: no respiratory distress Auscultation: + diminished lung sounds Cardiovascular: Rate/Rhythm: regular rate and regular rhythm Heart Sounds: normal S1 and normal S2 Extremities: no edema Neurologic: + obtunded Results & Data ([facility]) Vital Signs (Past 12 Hours) Vital Signs Temp Pulse Pulse Resp BP Pulse Ox 03/31/21 08:31 36.5 C 100 H 18 192/63 H 98 03/30/21 23:56 36.6 C 83 20 191/72 H 100 PG Care Time/CCT Total # of Minutes Spent Total Time Spent with Patient: Total time spent is greater than 50% in coordination of care (as documented) at patient's floor/unit and/or counseling patient: Coding Level of Care Code 86633 Subseq Hosp Care Lvl 2 Diagnoses End stage kidney disease N18.6 Anemia due to chronic kidney disease N18.9; D63.1 AMS (altered mental status) R41.82
[2021-03-31] MEDS ORDERED: EPOETIN ALFA 10,000 UNITS/ML VIAL IV SCH (11:00)
[2021-03-31] MEDS: ceFAZolin 1000MG 1,000 MG/7.5 ML SYR IV SCH (17:06)
[2021-03-31] MEDS ORDERED: PROMETHAZINE HCL 25 MG TAB PO PRN (18:21)
[2021-03-31] MEDS ORDERED: ONDANSETRON INJ 2 MG/ML 2 ML VIAL IV PRN (18:21)
[2021-03-31] MEDS ORDERED: haloperidoL 1 MG TAB PO PRN (18:21)
[2021-03-31] MEDS ORDERED: HYDROmorphone INJ 0.5 MG/0.5 ML SYR IV PRN (18:21)
[2021-03-31] MEDS ORDERED: ONDANSETRON 4 MG OD TAB SL PRN (18:21)
[2021-03-31] MEDS ORDERED: LORazepam 0.5 MG TAB PO PRN (18:21)
[2021-03-31] MEDS ORDERED: MoRPHine SULFATE 5 MG/0.25 ML UDP PO PRN (18:21)
[2021-03-31] MEDS: GLYCOPYRROLATE 0.2 MG/ML VIAL IV PRN (20:27)
[2021-03-31] MEDS: MoRPHine SULFATE 2 MG/ML CARP IV PRN (23:10)
[2021-04-01] MEDS: LORazepam 2 MG/1 ML VIAL IV PRN ×3 (02:08→17:37)
--- NOTE | 2021-04-01 10:07 | Hospitalist Progress Note ---
Date of Service April 01, 2021 Assessment & Plan (1) Abscess or cellulitis of back: Plan: 1) AMS, now [employer] -Most likely multifactorial- acute illness with multiple comorbidities in context of baseline dementia worsening over past few years -Extended discussion with family, initiated [employer] on 03/31. Pt expected to pass here which is family's preference -[employer] measures -Pain control with morphine, dilaudid PRN -Ativan PRN -Food/drink as tolerated 2) Shingles, questionable: -Stopped acyclovir treatment 3) MRSA cellulitis of back -Stopped antibiotic therapy 4) ESRD -Stopped dialysis -No longer trending BMPs 5) Oral candidiasis -Stopped clotrimazole treatment 6) DM2 -No longer checking BSGs, stopped ISS -Pt can eat freely as tolerated, 7) Glaucoma -Home meds stopped, [employer] FENGI: Regular as tolerated Code status: DNR/DNI DVT ppx: None Isolation: Airbone precautions Dispo: [employer], 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 [facility] (2) Shingles: (3) Migraine headache: (4) Urinary tract infection: (5) Anxiety with depression: (6) Allergic rhinitis: (7) COPD (chronic obstructive pulmonary disease): (8) Hypothyroidism (acquired): (9) Hypertension: (10) Diabetes mellitus: (11) Glaucoma: (12) CKD (chronic kidney disease) requiring chronic dialysis: Admission and Anticipated Discharge Date Admission Date: March 27, 2021 Supervising Physician Co-Signing Physician Notes Patient seen and examined independently of PGY-1 Dr. Welsh. 76 year old female with ESRD and DM admitted with altered mental status found to have cellulitis and herpes zoster. Currently on comfort measures. Family at the bedside. Pain control and symptom management with morphine, dilaudid, Ativan, Haldol, glycopyrrolate. PO ad valeria. Dispo: [employer]. Subjective No acute events overnight. After discussion with family yesterday, comfort measures initiated. Pt seen with daughters at bedside this morning. Appeared comfortable, reportedly had some shaking and tremor last night which quickly resolved with morphine and Ativan. Review of Systems Review of Systems: Unable to assess due to AMS Physical Exam Physical Exam: General: eyes closed with mouth open, appears more comfortable HEENT: dry mucous membranes CV- RRR, normal S1 S2, no murmur Resp: diminished breath sounds throughout, no increased work of breathing Neuro- obtunded Resident Activity Tracking Resident Involvement: Resident Care Provided Care Provided: Adult Hospital Medicine (1) Urinary tract infection Hematuria presence: without hematuria Urinary tract infection type: acute cystitis Qualified Code(s): N30.00 - Acute cystitis without hematuria
[2021-04-01] MEDS: MoRPHine SULFATE 2 MG/ML CARP IV PRN ×4 (11:46→20:18)
[2021-04-02] MEDS: MoRPHine SULFATE 2 MG/ML CARP IV PRN ×4 (01:39→10:55)
[2021-04-02] MEDS: LORazepam 2 MG/1 ML VIAL IV PRN ×2 (05:00→10:55)
[2021-04-02] MEDS ORDERED: STAT IV Infusion **Titration per Protocol STA (11:00)
--- NOTE | 2021-04-02 11:06 | Hospitalist Progress Note ---
Date of Service April 02, 2021 Assessment & Plan (1) Abscess or cellulitis of back: Plan: 76yo Female with PMH HTN COPD anxiety/depression hypothyroidism CKD here for fever, AMS and skin changes. Comfort Measures Only -Extended discussion with family. Pt expected to pass here which is family's preference -patient started on comfort measures as of 03/31 -family understands morphine and ativan available to control patient pain, breathing and anxiety -switched pain medication from morphine PRN IV to morphine drip to better control pain 1) AMS, now [employer] -Most likely multifactorial- acute illness with multiple comorbidities in context of baseline dementia worsening over past few years -stopped further intervention 2) Shingles, questionable: -Stopped acyclovir treatment 3) MRSA cellulitis of back -Stopped antibiotic therapy 4) ESRD -Stopped dialysis -No longer trending BMPs 5) Oral candidiasis -Stopped clotrimazole treatment 6) DM2 -No longer checking BSGs, stopped ISS -Pt can eat freely as tolerated 7) Glaucoma -Home meds stopped, [employer] FENGI: Regular as tolerated Code status: DNR/DNI DVT ppx: None Isolation: Airbone precautions Dispo: [employer], 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 [facility] (2) Shingles: (3) Migraine headache: (4) Urinary tract infection: (5) Anxiety with depression: (6) Allergic rhinitis: (7) COPD (chronic obstructive pulmonary disease): (8) Hypothyroidism (acquired): (9) Hypertension: (10) Diabetes mellitus: (11) Glaucoma: (12) CKD (chronic kidney disease) requiring chronic dialysis: Admission and Anticipated Discharge Date Admission Date: March 27, 2021 Supervising Physician Co-Signing Physician Notes Patient seen and examined with PGY-1 Dr. Rowe. 76 year old female with ESRD and DM admitted with altered mental status found to have cellulitis and herpes zoster. Currently on comfort measures. Family at the bedside. Family prefers to have her on the pest locator. Pain control and symptom management with morphine gtt, Ativan, Haldol, glycopyrrolate. PO ad valeria. Dispo: [employer]. Subjective Patient seen at bedside, asleep. Family present in room, crying, states patient occasionally has elevated heart rate and grimaces when in pain that disappears with morphine, states she feels the patient has symptoms again sometimes less than 2hr later. Review of Systems Review of Systems: Unobtainable due to reduced consciousness Physical Exam Constitutional: average body habitus, + frail appearing and comfortable ENMT: external ear and nose normal, oropharynx normal Neck: trachea midline, no thyromegaly Skin: no rashes, warm and dry Neurologic: + obtunded Resident Activity Tracking Resident Involvement: Resident Care Provided Care Provided: Adult Hospital Medicine (1) Urinary tract infection Hematuria presence: without hematuria Urinary tract infection type: acute cystitis Qualified Code(s): N30.00 - Acute cystitis without hematuria
[2021-04-02] MEDS: MoRPHine SULF/NSS 250 MG/250 ML BTL IV SCH (12:03)
[2021-04-03] MEDS: LORazepam 2 MG/1 ML VIAL IV PRN ×2 (06:19→12:30)
--- NOTE | 2021-04-03 07:12 | Hospitalist Progress Note ---
Date of Service April 03, 2021 Assessment & Plan (1) Abscess or cellulitis of back: Plan: 76yo Female with PMH HTN COPD anxiety/depression hypothyroidism CKD here for fever, AMS and skin changes. Comfort Measures Only -Extended discussion with family. 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 -Most likely multifactorial- acute illness with multiple comorbidities in context of baseline dementia worsening over past few years -stopped further intervention 2) Shingles, questionable: -Stopped acyclovir treatment 3) MRSA cellulitis of back -Stopped antibiotic therapy 4) ESRD -Stopped dialysis -No longer trending BMPs 5) Oral candidiasis -Stopped clotrimazole treatment 6) DM2 -No longer checking BSGs, stopped ISS -Pt can eat freely as tolerated 7) Glaucoma -Home meds stopped, [employer] FENGI: Regular as tolerated Code status: DNR/DNI DVT ppx: None Isolation: Airbone precautions Dispo: [employer], 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 [facility] (2) Shingles: (3) Migraine headache: (4) Urinary tract infection: (5) Anxiety with depression: (6) Allergic rhinitis: (7) COPD (chronic obstructive pulmonary disease): (8) Hypothyroidism (acquired): (9) Hypertension: (10) Diabetes mellitus: (11) Glaucoma: (12) CKD (chronic kidney disease) requiring chronic dialysis: Admission and Anticipated Discharge Date Admission Date: March 27, 2021 Supervising Physician Co-Signing Physician Notes Patient seen and examined with PGY-1 Dr. Rowe. 76 year old female with ESRD and DM admitted with altered mental status found to have cellulitis and herpes zoster. Currently on comfort measures. Family at the bedside. Family prefers to have her on the cardiac care nurse. Pain control and symptom management with morphine gtt, Ativan, Haldol, glycopyrrolate. PO ad valeria. Dispo: [employer]. Subjective Patient seen at bedside, sleeping comfortably. Family in room, states rest of family has come by to see patient already, they keep in touch via video chat. States patient's heart rate and breathing have varied, patient had a fever received cold towel for forehead for comfort. Discussed with family that changes in the patient's bodily function will occur while patient is in the process of passing. Family has no other concerns at this time. Review of Systems Review of Systems: Unobtainable due to reduced consciousness Physical Exam Constitutional: average body habitus, + frail appearing and comfortable ENMT: external ear and nose normal, oropharynx normal Neck: trachea midline, no thyromegaly Skin: no rashes, warm and dry Neurologic: + obtunded Resident Activity Tracking Resident Involvement: Resident Care Provided Care Provided: Adult Hospital Medicine (1) Urinary tract infection Hematuria presence: without hematuria Urinary tract infection type: acute cystitis Qualified Code(s): N30.00 - Acute cystitis without hematuria
[2021-04-03] MEDS: GLYCOPYRROLATE 0.2 MG/ML VIAL IV PRN (22:24)
--- NOTE | 2021-04-04 07:24 | Hospitalist Progress Note ---
Date of Service April 04, 2021 Assessment & Plan (1) Abscess or cellulitis of back: Plan: 76yo Female with PMH HTN COPD anxiety/depression hypothyroidism CKD here for fever, AMS and skin changes. Comfort Measures Only -Extended discussion with family. 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 -Most likely multifactorial- acute illness with multiple comorbidities in context of baseline dementia worsening over past few years -stopped further intervention 2) Shingles, questionable: -Stopped acyclovir treatment 3) MRSA cellulitis of back -Stopped antibiotic therapy 4) ESRD -Stopped dialysis -No longer trending BMPs 5) Oral candidiasis -Stopped clotrimazole treatment 6) DM2 -No longer checking BSGs, stopped ISS -Pt can eat freely as tolerated 7) Glaucoma -Home meds stopped, 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 FENGI: Regular as tolerated Code status: DNR/DNI DVT ppx: None Isolation: Airbone precautions Dispo: 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, 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 [facility] (2) Shingles: (3) Migraine headache: (4) Urinary tract infection: (5) Anxiety with depression: (6) Allergic rhinitis: (7) COPD (chronic obstructive pulmonary disease): (8) Hypothyroidism (acquired): (9) Hypertension: (10) Diabetes mellitus: (11) Glaucoma: (12) CKD (chronic kidney disease) requiring chronic dialysis: Admission and Anticipated Discharge Date Admission Date: March 27, 2021 Supervising Physician Co-Signing Physician Notes I personally examined the patient and verified all johnson points of history and exam, discussed case, and agree with decision making with Dr Rowe. No HPI review of systems obtainable from patient. Daughter notes that overall she has been calm and comfortable, but occasionally has rattling from respiratory secretions. Offered empathy and support. Vitals noted. No distress. Laying in bed without appearance of respiratory distress or discomfort. Does have 1 short-lived episode of rattling/gurgling respirations, self corrects, patient otherwise appearing comfortable. End-of-life carecomfort measures. Overall appearing comfortable. Is on glycopyrrolate for secretionsadding atropine. Continue current care otherwise otherwise as above Subjective Patient seen at bedside, sleeping comfortably. 2 family members in room awaiting patient to pass, they state they would like to stay the entire time with patient, unable to visit home for shower/sleep due to only 1 car present. They have increased patient's morphine drip out of concern of pain, are trying to turn her regularly. They had questions regarding how long it would take patient to pass, understand we are unable to give a definitive answer. Review of Systems Review of Systems: Unobtainable due to reduced consciousness Physical Exam Constitutional: average body habitus, + frail appearing and comfortable ENMT: external ear and nose normal, oropharynx normal Neck: trachea midline, no thyromegaly Skin: no rashes, warm and dry Neurologic: + obtunded Resident Activity Tracking Resident Involvement: Resident Care Provided Care Provided: Adult Hospital Medicine (1) Urinary tract infection Hematuria presence: without hematuria Urinary tract infection type: acute cystitis Qualified Code(s): N30.00 - Acute cystitis without hematuria
[2021-04-04] MEDS: GLYCOPYRROLATE 0.2 MG/ML VIAL IV PRN ×2 (10:07→15:42)
[2021-04-04] MEDS ORDERED: ATROPINE SULFATE 1% OP SOLN 5 ML BTL SL PRN (17:27)
--- NOTE | 2021-04-04 18:20 | Billing Data ---
Date of Service April 04, 2021 Coding Level of Care Code 60895 Subseq Hosp Care Lvl 2
--- NOTE | 2021-04-05 07:42 | Hospitalist Progress Note ---
Date of Service April 05, 2021 Assessment & Plan (1) Abscess or cellulitis of back: Plan: 76yo Female with PMH HTN COPD anxiety/depression hypothyroidism CKD here for fever, AMS and skin changes. Comfort Measures Only -Extended discussion with family. 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- acute illness with multiple comorbidities in context of baseline dementia worsening over past few years -stopped further intervention 2) Shingles, questionable: -Stopped acyclovir treatment 3) MRSA cellulitis of back -Stopped antibiotic therapy 4) ESRD -Stopped dialysis -No longer trending BMPs 5) Oral candidiasis -Stopped clotrimazole treatment 6) DM2 -No longer checking BSGs, stopped ISS -Pt can eat freely as tolerated 7) Glaucoma -Home meds stopped, 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: Regular as tolerated Code status: DNR/DNI DVT ppx: None Isolation: Airbone precautions 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, 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 [facility] (2) Shingles: (3) Migraine headache: (4) Urinary tract infection: (5) Anxiety with depression: (6) Allergic rhinitis: (7) COPD (chronic obstructive pulmonary disease): (8) Hypothyroidism (acquired): (9) Hypertension: (10) Diabetes mellitus: (11) Glaucoma: (12) CKD (chronic kidney disease) requiring chronic dialysis: Admission and Anticipated Discharge Date Admission Date: March 27, 2021 Supervising Physician Co-Signing Physician Notes I personally examined the patient and verified all johnson points of history and exam, discussed case, and agree with decision making with Dr Rowe. No HPI review of systems obtainable from patient. Mostly comfortable. Has had a few periods of secretion mediated respiratory distressimproved quickly with medications. Vitals noted. No distress. Laying in bed without appearance of respiratory distress or discomfort. A bit of an appearance toward Chet-Justin respirations at this time, but no gurgling as was previously described. End-of-life carecomfort measures. Overall appearing comfortable. Continue comfort care/as needed medications/support otherwise as above Subjective Patient seen at bedside, comfortable asleep, 2 family members in room. Per family patient has had increasing breathing rattles, the medications have helped. Family has been occasionally turning the patient, declined nursing assistance. States no one else can switch shifts with them, they live too far to visit home for a shower. Family states they have gone outside to walk. Family is patiently awaiting patient passing, no other complaints at this time. Review of Systems Review of Systems: Unable to assess due to AMS Physical Exam Constitutional: average body habitus, + frail appearing and comfortable ENMT: external ear and nose normal, oropharynx normal Neck: trachea midline, no thyromegaly Skin: no rashes, warm and dry Neurologic: + obtunded Resident Activity Tracking Resident Involvement: Resident Care Provided Care Provided: Adult Hospital Medicine (1) Urinary tract infection Hematuria presence: without hematuria Urinary tract infection type: acute cystitis Qualified Code(s): N30.00 - Acute cystitis without hematuria
[2021-04-05] MEDS: MoRPHine SULF/NSS 250 MG/250 ML BTL IV SCH (09:18)
[2021-04-05] MEDS: GLYCOPYRROLATE 0.2 MG/ML VIAL IV PRN (11:01)
[2021-04-05] MEDS: LORazepam 2 MG/1 ML VIAL IV PRN (11:02)
--- NOTE | 2021-04-05 18:12 | Billing Data ---
Date of Service April 05, 2021 Coding Level of Care Code 67330 Subseq Hosp Care Lvl 1
--- NOTE | 2021-04-06 02:10 | Discharge Summary ---
Date of Service April 06, 2021 Admission HPI Per Admitting Provider The patient is a 76-year-old female with a past medical history including ESRD on HD, hypertension, glaucoma, vitamin D deficiency, glaucoma, migraine headache, orthostatic hypotension, allergic rhinitis, hypothyroidism, and diabetes mellitus who presents to the emergency department as noted above. She has had decreased oral intake over the past several days. She was started on Bactrim for urinary tract infection at [facility] in [place] where she lives. Yesterday, the family noted skin lesions on her back, that the daughter reports are worsening today. She initially picked up her mother and took her to [facility] for additional blood work and testing, and now presents to [facility] for further evaluation and treatment Admission Exam Per Admitting Provider The patient is awake, well developed and well nourished, normocephalic and atraumatic, lying in bed and in no acute distress. HEENT--PERRL, EOMI, mucous membranes and oropharynx with thrush on tongue and buccal mucosa Neck--supple. No JVD. No bruits. Thyroid normal, trachea midline, no adenopathy. Heart--normal S1 and S2. No murmurs, rubs or gallops. Lungs--clear bilaterally, no respiratory distress, no accessory muscle use. Abdomen--normal bowel sounds and soft. Nontender. Nondistended, no hernias or masses, no organomegaly. Extremities--no cyanosis or clubbing. No edema. Dermatologic--right flank/upper buttock dermatomal rash, painful to touch, with overlying circular cellulitic areas with central granulation. Decubitus ulcer intergluteal stage II-III. Neurologic--cranial nerves II through XII grossly intact. Rheumatologic--limited exam Psychiatric--flat affect. Principal Diagnosis Cellulitis Fluid Overload due to ESRD Discharge Exam General: Lying in bed, mouth hanging open, unresponsive to any stimulus Eyes: pupils fixed and 2mm bilaterally and non-reactive to light or accomodation Pulm: No lung sounds on auscultation Cardiac: No heart sounds on auscultation. No radial/femoral pulse palable. Discharge Data Allergies Allergy/AdvReac Type Severity Reaction Status Date / Time propoxyphene [From Darvon] Allergy Severe RESP Verified 03/26/21 23:15 DISTRESS shellfish derived Allergy Severe PER PT'S Verified 03/26/21 23:15 DAUGHTER "SEVERE REACTION LONG TIME AGO". latex Allergy Intermediate Rash Verified 03/26/21 23:15 Consultations 03/28/21 07:35 Consult Nephrology Routine Ordered Studies 03/27/21 01:13 CT abd pelvis wo con Urgent CT head/brain wo con Urgent 03/27/21 02:35 CT head/brain wo con Urgent Hospital Course (1) Abscess or cellulitis of back: 76yo Female with PMH HTN COPD anxiety/depression hypothyroidism CKD here for fever, AMS and skin changes. 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 Conditions treated and addressed during this hospitalization: 1) AMS 2) Shingles, questionable: 3) MRSA cellulitis of back 4) ESRD 5) Oral candidiasis 6) DM2 7) Glaucoma (2) Shingles: (3) Migraine headache: (4) Urinary tract infection: (5) Anxiety with depression: (6) Allergic rhinitis: (7) COPD (chronic obstructive pulmonary disease): (8) Hypothyroidism (acquired): (9) Hypertension: (10) Diabetes mellitus: (11) Glaucoma: (12) CKD (chronic kidney disease) requiring chronic dialysis: Total Time Total Time Spent Total Time Spent (In Minutes): <30 Discharge Plan Discharge Items Patient Disposition: Discharge Diagnosis: Fluid Overload Due to ESRD Cellulitis Shingles Hugo Attending Provider Instructions: I was called to the patient's room after the patient's daughters had reported that she stopped breathing. I examined the patient and was not able to auscultate lung or heart sounds. No palpable radial or femoral pulse. Patient's pupils are 2mm bilaterally, fixed, and not reactive to light or accommodation. Patient has . Other Date/Time: 04/06/21 01:01 Interventions: Discharge Summary Assessment (RN) Last Done: 04/06/21 04:47 Supervising Physician Co-Signing Physician Notes agree with above Resident Activity Tracking Resident Involvement: Resident Care Provided Care Provided: Adult Hospital Medicine
--- NOTE | 2021-04-12 09:29 | Coding Query ---
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 Please assist us with the question(s) below: Coding Question(s): Please document the Cause of . Thank you. Jesus Santos [facility] Physician's Response(s): Principal Diagnosis: "that condition established after study, to be chiefly responsible for occasioning the admission of the patient to the hospital for care." Co-Existing Principal Diagnosis: "when two or more diagnoses equally meet the criteria for principal diagnosis as determined by the circumstances of admission, diagnostic work up, and/or therapy provided, and the Alphabetic Index, Tabular List, or another coding guideline does not provide sequencing direction, any one of the diagnoses may be sequenced first." "When the physician has documented what appears to be a current diagnosis in the body of the record, but has not included the diagnosis in the final diagnostic statement, the physician should be asked whether the diagnosis should be added." (Source Coding Clinic 2 QTR90. p3-4) TRES
== END 2021-04-06 04:51 | disposition expired | DRG 595 ==
LOC: ED 22:21 → 3E 03-27 04:14 → SUATTDRO 03-27 04:14 → 3E 03-27 05:15